=== PATIENT | male | born 1935 | race Caucasian/White ===

== ENCOUNTER 2016-12-17 09:06 | Inpatient (IN) | payer MEDICARE, OTHER ==
[~2016-12-17] VITALS: Ht 172.7 cm; Wt 85.8 kg
[~2016-12-17 09:06] MED LIST: AMLODIPINE BESYL5 MG PO; ASPIRIN E.C. 8181 MG PO; BROVANA15 MCG/2 M IH; CEPHALEXIN500 M1 PO; CIPRO 500MG TA500 MG PO; CORICIDIN COUGH1 TAB PO; CPAP; EPA FISH OIL1000 MG PO; FIBER THERAPY500 MG PO; FORADIL AERO0.012 MG IH; GLIPIZIDE10 MG PO; GLUCOPHAGE XR500 M1 PO; GLUCOPHAGE1000 MG PO; GLUCOPHAGE500 MG/TAB PO; GLUCOTROL10 MG PO; HYZAAR 25 MG-101 TAB PO; HYZAAR PO; IRON65 M1 PO; METFORMIN1000 MG PO; MUCUSRELF400T PO; NORMODYNE200 MG PO; NORVASC 5MG5 MG/TAB PO; PRAVACHOL 20MG20 MG PO; PRAVASTATIN20 MG PO; PULMICORT0.5 MG/2 M IH; RT SPIRIVA18 MCG IH; SPIRIVA HANDIH18 MCG IH; THEO-DUR 2200 MG/TAB PO; TUSSIN DM 10 M118 ML PO
[2016-12-17 09:26] VITALS: BP 1063/53; PULSE 70
[2016-12-17] MEDS ORDERED: GLUCOTROL 5M5 MG/TAB PO (09:35)
[2016-12-17] MEDS ORDERED: NORVASC 10MG10 MG PO (09:38)
[2016-12-17] MEDS ORDERED: THERA TABS1 TAB PO (09:40)
[2016-12-17 11:29] LABS: CALCIUM 9.8 mg/dL (8.4-10.2); CREATININE, serum 2.44 mg/dL (0.66-1.25); POTASSIUM 4.5 mmol/L (3.4-5.0)
[2016-12-17 13:09] VITALS: BP 160/55; PULSE 92; TEMP 98.1
[2016-12-17 17:11] VITALS: BP 170/63; PULSE 74; TEMP 98.5
[2016-12-17 22:23] VITALS: BP 155/51; PULSE 72; TEMP 98.3
[2016-12-18] VITALS (272 sets, daily range): BP systolic 124–169; BP diastolic 40–68; PULSE 7–84; TEMP 97–98.5; O2SAT 90–100
[2016-12-18 06:56] LABS: BASO % 0.2 % (0.0-2.0); EOS # 0.3 (0.0-0.7); GRAN # 6.2 (1.4-6.5); GRAN % 66.8 % (42.2-75.2); LYMPH # 1.8 (1.2-3.4); LYMPH % 19.5 % (20.0-51.0); MEAN CELL VOLUME 87 fl (80.0-100.0); MEAN CORPUSCULAR HGB CONC 32 g/dl (33.0-37.0); MEAN PLATELET VOLUME 9.6 fl (7.4-10.4); MONO # 0.9 (0.1-0.6); MONO % 10.2 % (1.7-9.3); PLATELET COUNT 257 K/mm3 (130-400); REDCELL DISTRIBUTION WIDTH-CV 13.2 % (11.5-14.5); WHITE BLOOD COUNT 9.2 K/mm3 (4.8-10.8)
[2016-12-18 07:01] LABS: HEMATOCRIT 30.5 % (42.0-52.0); HEMOGLOBIN 9.7 g/dl (13.5-18.0); MEAN CORPUSCULAR HEMOGLOBIN 28 pg (27.0-31.0)
[2016-12-18 07:06] LABS: CALCIUM 9.1 mg/dL (8.4-10.2); CREATININE, serum 2.36 mg/dL (0.66-1.25); POTASSIUM 4.7 mmol/L (3.4-5.0)
[2016-12-18 12:35] LABS: BASO # 0.1 (0.0-0.2); BASO % 0.3 % (0.0-2.0); EOS # 0.1 (0.0-0.7); EOS % 0.3 % (0-4.0); GRAN # 16.1 (1.4-6.5); GRAN % 86.5 % (42.2-75.2); LYMPH # 1.3 (1.2-3.4); LYMPH % 6.9 % (20.0-51.0); MEAN CELL VOLUME 88 fl (80.0-100.0); MEAN CORPUSCULAR HGB CONC 32 g/dl (33.0-37.0); MEAN PLATELET VOLUME 9.7 fl (7.4-10.4); MONO % 5.4 % (1.7-9.3); PLATELET COUNT 263 K/mm3 (130-400); RED BLOOD COUNT 3.47 M/mm3 (4.20-5.60); REDCELL DISTRIBUTION WIDTH-CV 13.2 % (11.5-14.5); WHITE BLOOD COUNT 18.6 K/mm3 (4.8-10.8)
[2016-12-18 12:36] LABS: HEMATOCRIT 30.6 % (42.0-52.0); HEMOGLOBIN 9.8 g/dl (13.5-18.0); MEAN CORPUSCULAR HEMOGLOBIN 28 pg (27.0-31.0)
[2016-12-18 12:37] LABS: CALCIUM 8.3 mg/dL (8.4-10.2); CREATININE, serum 2.56 mg/dL (0.66-1.25); MAGNESIUM 1.9 mg/dL (1.6-2.3); PHOSPHOROUS 4.7 mg/dL (2.5-4.5); POTASSIUM 5.3 mmol/L (3.4-5.0)
[2016-12-18 16:28] LABS: MEAN CELL VOLUME 88 fl (80.0-100.0); MEAN CORPUSCULAR HGB CONC 32 g/dl (33.0-37.0); MEAN PLATELET VOLUME 9.7 fl (7.4-10.4); PLATELET COUNT 263 K/mm3 (130-400); RED BLOOD COUNT 3.45 M/mm3 (4.20-5.60); REDCELL DISTRIBUTION WIDTH-CV 13.2 % (11.5-14.5)
[2016-12-18 16:34] LABS: HEMATOCRIT 30.5 % (42.0-52.0); HEMOGLOBIN 9.7 g/dl (13.5-18.0); MEAN CORPUSCULAR HEMOGLOBIN 28 pg (27.0-31.0)
[2016-12-18 18:08] LABS: AMMONIA < 9 umol/L (11-35)
[2016-12-18 18:09] LABS: ALANINE AMINOTRANSFERASE 38 U/L (21-72); ALBUMIN 3.7 gm/dL (3.5-5.0); ALKALINE PHOSPHATASE 88 U/L (50-136); BILIRUBIN,DIRECT 0.5 mg/dL (0.0-0.4); BILIRUBIN,TOTAL 0.7 mg/dL (0.0-1.0); TOTAL PROTEIN 6.6 gm/dL (6.4-8.2)
[2016-12-19] VITALS (230 sets, daily range): BP systolic 130–166; BP diastolic 38–60; PULSE 64–649; TEMP 97.3–98.9; O2SAT 82–100
[2016-12-19 05:54] LABS: MEAN CELL VOLUME 88 fl (80.0-100.0); MEAN CORPUSCULAR HGB CONC 32 g/dl (33.0-37.0); MEAN PLATELET VOLUME 9.7 fl (7.4-10.4); PLATELET COUNT 240 K/mm3 (130-400); RED BLOOD COUNT 3.05 M/mm3 (4.20-5.60); REDCELL DISTRIBUTION WIDTH-CV 13.2 % (11.5-14.5); WHITE BLOOD COUNT 17.6 K/mm3 (4.8-10.8)
[2016-12-19 05:57] LABS: HEMATOCRIT 26.7 % (42.0-52.0); HEMOGLOBIN 8.5 g/dl (13.5-18.0); MEAN CORPUSCULAR HEMOGLOBIN 28 pg (27.0-31.0)
[2016-12-19 06:03] LABS: CREATININE, serum 2.91 mg/dL (0.66-1.25); PHOSPHOROUS 4.7 mg/dL (2.5-4.5); POTASSIUM 5.5 mmol/L (3.4-5.0)
[2016-12-19 13:20] LABS: CALCIUM 7.9 mg/dL (8.4-10.2); CREATININE, serum 2.83 mg/dL (0.66-1.25); POTASSIUM 5.4 mmol/L (3.4-5.0)
[2016-12-20] VITALS (10 sets, daily range): BP systolic 151–179; BP diastolic 52–76; PULSE 45–88; TEMP 97.1–98.6
[2016-12-20 07:52] LABS: BASO % 0.1 % (0.0-2.0); GRAN # 11.5 (1.4-6.5); GRAN % 81.4 % (42.2-75.2); LYMPH % 7.1 % (20.0-51.0); MEAN CELL VOLUME 88 fl (80.0-100.0); MEAN CORPUSCULAR HGB CONC 32 g/dl (33.0-37.0); MEAN PLATELET VOLUME 9.6 fl (7.4-10.4); MONO # 1.5 (0.1-0.6); MONO % 10.5 % (1.7-9.3); PLATELET COUNT 215 K/mm3 (130-400); RED BLOOD COUNT 2.63 M/mm3 (4.20-5.60); REDCELL DISTRIBUTION WIDTH-CV 13.7 % (11.5-14.5); WHITE BLOOD COUNT 14.1 K/mm3 (4.8-10.8)
[2016-12-20 08:03] LABS: CALCIUM 7.7 mg/dL (8.4-10.2); CREATININE, serum 2.68 mg/dL (0.66-1.25)
[2016-12-20 08:07] LABS: HEMATOCRIT 23.1 % (42.0-52.0); HEMOGLOBIN 7.4 g/dl (13.5-18.0); MEAN CORPUSCULAR HEMOGLOBIN 28 pg (27.0-31.0)
[2016-12-21 01:44] VITALS: BP 169/53; PULSE 85; TEMP 98.6
[2016-12-21 05:48] VITALS: BP 158/57; PULSE 94; TEMP 98.4
[2016-12-21 09:21] LABS: BASO % 0.2 % (0.0-2.0); EOS % 0.3 % (0-4.0); GRAN # 8.3 (1.4-6.5); GRAN % 73.2 % (42.2-75.2); LYMPH # 1.5 (1.2-3.4); LYMPH % 13.1 % (20.0-51.0); MEAN CELL VOLUME 88 fl (80.0-100.0); MEAN CORPUSCULAR HGB CONC 32 g/dl (33.0-37.0); MEAN PLATELET VOLUME 9.7 fl (7.4-10.4); MONO # 1.4 (0.1-0.6); MONO % 12.3 % (1.7-9.3); PLATELET COUNT 219 K/mm3 (130-400); RED BLOOD COUNT 3.12 M/mm3 (4.20-5.60); REDCELL DISTRIBUTION WIDTH-CV 14.1 % (11.5-14.5); WHITE BLOOD COUNT 11.3 K/mm3 (4.8-10.8)
[2016-12-21 09:23] LABS: HEMATOCRIT 27.5 % (42.0-52.0); HEMOGLOBIN 8.8 g/dl (13.5-18.0); MEAN CORPUSCULAR HEMOGLOBIN 28 pg (27.0-31.0)
[2016-12-21 09:29] LABS: CREATININE, serum 2.32 mg/dL (0.66-1.25)
[2016-12-21 10:34] VITALS: BP 150/44; PULSE 78; TEMP 98.5
[2016-12-21 14:00] VITALS: BP 165/48; PULSE 80; TEMP 98.8
[2016-12-21 18:26] VITALS: BP 162/49; PULSE 82; TEMP 99.5
[2016-12-21 22:02] VITALS: BP 192/58; PULSE 92; TEMP 98.8
[2016-12-22] VITALS (456 sets, daily range): BP systolic 143–200; BP diastolic 55–77; PULSE 66–93; TEMP 97.1–99.4; O2SAT 89–100
[2016-12-22 06:56] LABS: ARTERIAL BLD GAS O2 SATURATION 97.1 % (92-100); ARTERIAL BLD GAS TCO2 CT 33.5; ARTERIAL BLOOD GAS BASE EXCESS 6.3 (-2-2); ARTERIAL BLOOD GAS HCO3 31.9 meq/L (22-26); ARTERIAL BLOOD GAS PHT 7.41 C (7.35-7.45); ARTERIAL BLOOD GAS PO2 104.7 mmHg (80-100); ARTERIAL BLOOD GAS PO2T 104.7 (80-100); ARTERIAL BLOOD GAS pH 7.41 (7.35-7.45)
[2016-12-22 06:57] LABS: ATS? YES
[2016-12-22 07:25] LABS: BASO % 0.2 % (0.0-2.0); EOS # 0.1 (0.0-0.7); EOS % 0.5 % (0-4.0); GRAN # 8.7 (1.4-6.5); GRAN % 78.7 % (42.2-75.2); LYMPH # 0.9 (1.2-3.4); LYMPH % 7.9 % (20.0-51.0); MEAN CELL VOLUME 88 fl (80.0-100.0); MEAN CORPUSCULAR HGB CONC 32 g/dl (33.0-37.0); MEAN PLATELET VOLUME 9.8 fl (7.4-10.4); MONO # 1.3 (0.1-0.6); MONO % 11.9 % (1.7-9.3); PLATELET COUNT 236 K/mm3 (130-400); RED BLOOD COUNT 3.38 M/mm3 (4.20-5.60); WHITE BLOOD COUNT 11.1 K/mm3 (4.8-10.8)
[2016-12-22 07:26] LABS: HEMATOCRIT 29.8 % (42.0-52.0); HEMOGLOBIN 9.5 g/dl (13.5-18.0); MEAN CORPUSCULAR HEMOGLOBIN 28 pg (27.0-31.0)
[2016-12-22 07:52] LABS: CALCIUM 8.8 mg/dL (8.4-10.2); CREATININE, serum 2.18 mg/dL (0.66-1.25); POTASSIUM 3.5 mmol/L (3.4-5.0)
[2016-12-22 10:11] LABS: MEAN CELL VOLUME 89 fl (80.0-100.0); MEAN CORPUSCULAR HGB CONC 31 g/dl (33.0-37.0); MEAN PLATELET VOLUME 9.7 fl (7.4-10.4); PLATELET COUNT 228 K/mm3 (130-400); REDCELL DISTRIBUTION WIDTH-CV 13.7 % (11.5-14.5); WHITE BLOOD COUNT 11.4 K/mm3 (4.8-10.8)
[2016-12-22 10:15] LABS: HEMOGLOBIN 9.7 g/dl (13.5-18.0); MEAN CORPUSCULAR HEMOGLOBIN 28 pg (27.0-31.0)
[2016-12-22 10:20] LABS: CREATININE, serum 2.17 mg/dL (0.66-1.25); POTASSIUM 3.9 mmol/L (3.4-5.0)
[2016-12-22 13:52] LABS: ALLEN TEST NO; ARTERIAL BLD GAS O2 SATURATION 97.1 % (92-100); ARTERIAL BLD GAS TCO2 CT 28.9; ARTERIAL BLOOD GAS BASE EXCESS 1.9 (-2-2); ARTERIAL BLOOD GAS HCO3 27.4 meq/L (22-26); ARTERIAL BLOOD GAS PHT 7.38 C (7.35-7.45); ARTERIAL BLOOD GAS PO2 99.8 mmHg (80-100); ARTERIAL BLOOD GAS PO2T 99.8 (80-100); ARTERIAL BLOOD GAS pH 7.38 (7.35-7.45); ATS? YES; OXYHEMOGLOBIN 96.1 %
[2016-12-23] VITALS (844 sets, daily range): BP systolic 151–187; BP diastolic 56–63; PULSE 62–82; TEMP 97–98.5; O2SAT 77–100
[2016-12-23 04:44] LABS: ARTERIAL BLD GAS O2 SATURATION 96.8 % (92-100); ARTERIAL BLD GAS TCO2 CT 25.7; ARTERIAL BLOOD GAS BASE EXCESS -2.2 (-2-2); ARTERIAL BLOOD GAS HCO3 24.2 meq/L (22-26); ARTERIAL BLOOD GAS PHT 7.31 C (7.35-7.45); ARTERIAL BLOOD GAS PO2 105.4 mmHg (80-100); ARTERIAL BLOOD GAS PO2T 105.4 (80-100); ARTERIAL BLOOD GAS pH 7.31 (7.35-7.45); OXYHEMOGLOBIN 95.7 %
[2016-12-23 04:45] LABS: ALLEN TEST YES; ALLENS TEST RESULT PASS; ATS? YES
[2016-12-23 06:04] LABS: CALCIUM 8.5 mg/dL (8.4-10.2); CREATININE, serum 2.33 mg/dL (0.66-1.25); POTASSIUM 4.1 mmol/L (3.4-5.0)
[2016-12-24] VITALS (545 sets, daily range): BP systolic 150–180; BP diastolic 42–100; PULSE 68–75; TEMP 97.6–98.3; O2SAT 84–100
[2016-12-24 06:34] LABS: BASO % 0.1 % (0.0-2.0); EOS # 0.6 (0.0-0.7); EOS % 5.9 % (0-4.0); GRAN # 6.5 (1.4-6.5); GRAN % 69.9 % (42.2-75.2); LYMPH # 1.2 (1.2-3.4); LYMPH % 12.3 % (20.0-51.0); MEAN CELL VOLUME 88 fl (80.0-100.0); MEAN CORPUSCULAR HGB CONC 32 g/dl (33.0-37.0); MEAN PLATELET VOLUME 9.8 fl (7.4-10.4); MONO # 1.1 (0.1-0.6); MONO % 11.4 % (1.7-9.3); PLATELET COUNT 222 K/mm3 (130-400); RED BLOOD COUNT 2.99 M/mm3 (4.20-5.60); REDCELL DISTRIBUTION WIDTH-CV 13.9 % (11.5-14.5); WHITE BLOOD COUNT 9.4 K/mm3 (4.8-10.8)
[2016-12-24 06:45] LABS: HEMATOCRIT 26.4 % (42.0-52.0); HEMOGLOBIN 8.4 g/dl (13.5-18.0); MEAN CORPUSCULAR HEMOGLOBIN 28 pg (27.0-31.0)
[2016-12-24 06:57] LABS: CALCIUM 8.1 mg/dL (8.4-10.2); CREATININE, serum 2.23 mg/dL (0.66-1.25); POTASSIUM 3.6 mmol/L (3.4-5.0)
[2016-12-25 04:57] VITALS: BP 174/40; PULSE 65
[2016-12-25 08:18] LABS: BASO % 0.1 % (0.0-2.0); EOS # 0.5 (0.0-0.7); EOS % 6.1 % (0-4.0); GRAN # 5.3 (1.4-6.5); GRAN % 66.9 % (42.2-75.2); LYMPH # 1.1 (1.2-3.4); LYMPH % 14.1 % (20.0-51.0); MEAN CELL VOLUME 87 fl (80.0-100.0); MEAN CORPUSCULAR HGB CONC 32 g/dl (33.0-37.0); MONO % 12.3 % (1.7-9.3); PLATELET COUNT 213 K/mm3 (130-400); RED BLOOD COUNT 2.93 M/mm3 (4.20-5.60); REDCELL DISTRIBUTION WIDTH-CV 13.7 % (11.5-14.5); WHITE BLOOD COUNT 7.9 K/mm3 (4.8-10.8)
[2016-12-25 08:40] LABS: CALCIUM 8.5 mg/dL (8.4-10.2); CREATININE, serum 2.55 mg/dL (0.66-1.25); POTASSIUM 3.7 mmol/L (3.4-5.0)
[2016-12-25 08:45] LABS: HEMATOCRIT 25.6 % (42.0-52.0); HEMOGLOBIN 8.3 g/dl (13.5-18.0); MEAN CORPUSCULAR HEMOGLOBIN 28 pg (27.0-31.0)
[2016-12-25 10:20] VITALS: BP 155/34; PULSE 76; TEMP 97.8
[2016-12-25 13:13] LABS: ARTERIAL BLD GAS O2 SATURATION 91.9 % (92-100); ARTERIAL BLOOD GAS BASE EXCESS -1.5 (-2-2); ARTERIAL BLOOD GAS HCO3 22.9 meq/L (22-26); ARTERIAL BLOOD GAS PHT 7.41 C (7.35-7.45); ARTERIAL BLOOD GAS PO2 64.7 mmHg (80-100); ARTERIAL BLOOD GAS PO2T 64.7 (80-100); ARTERIAL BLOOD GAS pH 7.41 (7.35-7.45); OXYHEMOGLOBIN 90.9 %
[2016-12-25 13:15] LABS: ALLEN TEST YES; ALLENS TEST RESULT PASS; ATS? YES
[2016-12-25 13:57] VITALS: BP 155/38; PULSE 62; TEMP 98.1
[2016-12-25 18:12] VITALS: BP 160/71; PULSE 72; TEMP 97.2
[2016-12-25 20:42] VITALS: BP 179/41; PULSE 71; TEMP 98.7
[2016-12-26 02:09] VITALS: BP 184/45; PULSE 74; TEMP 96.8
[2016-12-26 06:26] VITALS: BP 180/41; PULSE 77; TEMP 99
[2016-12-26 07:25] LABS: BASO % 0.1 % (0.0-2.0); EOS # 0.5 (0.0-0.7); EOS % 6.3 % (0-4.0); GRAN # 5.1 (1.4-6.5); GRAN % 61.4 % (42.2-75.2); LYMPH # 1.5 (1.2-3.4); LYMPH % 17.5 % (20.0-51.0); MEAN CELL VOLUME 88 fl (80.0-100.0); MEAN CORPUSCULAR HGB CONC 31 g/dl (33.0-37.0); MONO # 1.2 (0.1-0.6); MONO % 13.9 % (1.7-9.3); PLATELET COUNT 227 K/mm3 (130-400); RED BLOOD COUNT 2.94 M/mm3 (4.20-5.60); REDCELL DISTRIBUTION WIDTH-CV 13.9 % (11.5-14.5); WHITE BLOOD COUNT 8.4 K/mm3 (4.8-10.8)
[2016-12-26 07:28] LABS: CALCIUM 8.1 mg/dL (8.4-10.2); CREATININE, serum 2.29 mg/dL (0.66-1.25); HEMATOCRIT 25.9 % (42.0-52.0); HEMOGLOBIN 8.1 g/dl (13.5-18.0); MEAN CORPUSCULAR HEMOGLOBIN 28 pg (27.0-31.0); POTASSIUM 3.9 mmol/L (3.4-5.0)
[2016-12-26 10:00] VITALS: BP 150/45; PULSE 66; TEMP 97.7
[2016-12-26 13:07] VITALS: BP 167/56; PULSE 64; TEMP 97.7
[2016-12-26 18:27] VITALS: BP 180/43; PULSE 68
[2016-12-26 21:53] VITALS: BP 166/37; PULSE 73; TEMP 98.7
[2016-12-27 06:22] VITALS: BP 193/44; PULSE 66; TEMP 98.4
[2016-12-27 09:40] VITALS: BP 187/44; PULSE 71; TEMP 98.7
[2016-12-27 15:17] VITALS: BP 154/42; PULSE 69; TEMP 98
[2016-12-27 17:39] VITALS: BP 168/46; PULSE 71; TEMP 98.2
[2016-12-27 21:24] VITALS: BP 183/52; PULSE 74; TEMP 98.9
[2016-12-28 06:30] VITALS: BP 172/42; PULSE 69; TEMP 98.8
[2016-12-28 10:15] VITALS: BP 149/48; PULSE 73; TEMP 98.3
[2016-12-28 13:53] LABS: CALCIUM 8.3 mg/dL (8.4-10.2); CREATININE, serum 2.71 mg/dL (0.66-1.25); POTASSIUM 4.7 mmol/L (3.4-5.0)
[2016-12-28 13:57] VITALS: BP 150/44; PULSE 72; TEMP 98
[2016-12-28 17:31] VITALS: BP 174/48; PULSE 66; TEMP 98.3
[2016-12-28 18:20] VITALS: BP 130/63
[2016-12-28 20:33] VITALS: BP 169/49; PULSE 73; TEMP 98.2
[2016-12-29 05:33] VITALS: BP 171/65; PULSE 68; TEMP 99.1
[2016-12-29 07:22] LABS: CALCIUM 8.7 mg/dL (8.4-10.2); CREATININE, serum 2.94 mg/dL (0.66-1.25); POTASSIUM 4.3 mmol/L (3.4-5.0)
[2016-12-29 09:49] VITALS: BP 179/40; PULSE 74; TEMP 98.2
[2016-12-29 13:22] VITALS: BP 155/45; PULSE 66; TEMP 98.3
[2016-12-29 14:28] VITALS: BP 155/45; PULSE 66; TEMP 98.3
== END 2016-12-29 15:00 | disposition swing bed (61) | DRG 653 ==
LOC: ICU 09:06 → SURG 09:06 → ICU 12-18 13:31 → SURG 12-19 13:45 → ICU 12-22 09:25 → IMCU 12-22 17:51 → SURG 12-24 11:24
PROVIDERS: Family Medicine; Internal Medicine; Internal Medicine Nephrology; Internal Medicine Pulmonary Disease; Physician Assistant; Urology
PROC: 0TTB0ZZ Resection of Bladder, Open Approach (ICD-10-PCS; 2016-12-18)
PROC: 07BC0ZX Excision of Pelvis Lymphatic, Open Approach, Diagnostic (ICD-10-PCS; 2016-12-18)
PROC: 0T180ZC Bypass Bilateral Ureters to Ileocutaneous, Open Approach (ICD-10-PCS; 2016-12-18)
PROC: 0VT00ZZ Resection of Prostate, Open Approach (ICD-10-PCS; principal; 2016-12-18 07:30)
DX: C67.9 Malignant neoplasm of bladder, unspecified (principal); J96.02 Acute respiratory failure with hypercapnia; N18.4 Chronic kidney disease, stage 4 (severe); F05 Delirium due to known physiological condition; D62 Acute posthemorrhagic anemia; N17.9 Acute kidney failure, unspecified; J98.11 Atelectasis; E87.2 Acidosis; I12.9 Hypertensive chronic kidney disease with stage 1 through stage 4 chronic kidney disease, or unspecified chronic kidney disease; J44.9 Chronic obstructive pulmonary disease, unspecified; E87.5 Hyperkalemia; E11.22 Type 2 diabetes mellitus with diabetic chronic kidney disease; I25.10 Atherosclerotic heart disease of native coronary artery without angina pectoris; Z95.5 Presence of coronary angioplasty implant and graft; Z87.891 Personal history of nicotine dependence
CPT/HCPCS: 90791-AI; 99222; 99232-AI; 99233-AI; C9113; J0360; J0690; J0694; J1100; J1644; J1650; J1815; J1940; J2250; J2405; J2704; J2765; J2795; J3010; J7030; J7050; J7120; P9016

== ENCOUNTER → 2018-01-12 | Outpatient (CLI) | payer MEDICARE, OTHER ==
[~2018-01-12] VITALS: Ht 172.7 cm; Wt 73.2 kg
[2018-01-12] VITALS (10 sets, daily range): BP systolic 144–177; BP diastolic 60–72; PULSE 78–84
[~2018-01-12] MED LIST changes: +COZAAR 50MG50 MG/TAB PO; +GLUCOTROL 5M5 MG/TAB PO; +HYTRIN 1MG C1 MG/CAP PO; +LEVEMIR100 U/ML SQ; +NORCO 325 MG-51 TAB PO; +NORVASC 10MG10 MG PO; +SODIUM BICARBO650 MG PO; +THERA TABS1 TAB PO; +XANAX 0.5MG0.5 MG PO
== END ==
LOC: COL.RAD 12:48
DX: C67.9 Malignant neoplasm of bladder, unspecified (principal); C79.51 Secondary malignant neoplasm of bone; N18.9 Chronic kidney disease, unspecified; E11.9 Type 2 diabetes mellitus without complications; I73.9 Peripheral vascular disease, unspecified; I25.10 Atherosclerotic heart disease of native coronary artery without angina pectoris; Z87.891 Personal history of nicotine dependence; Z90.6 Acquired absence of other parts of urinary tract; Z90.79 Acquired absence of other genital organ(s)

== ENCOUNTER 2019-07-12 16:21 | Inpatient (IN) | payer MEDICARE, OTHER ==
[~2019-07-12] VITALS: Ht 175.3 cm; Wt 82.1 kg
[~2019-07-12 16:21] MED LIST changes: -COZAAR 50MG50 MG/TAB PO; +COZAAR100 MG PO; +NORMODYNE300 MG PO; -NORVASC 10MG10 MG PO
--- NOTE | 2019-07-12 17:18 | NUR ---
PT ADMITTED TO FLOOR AT THIS TIME. THIS NURSE CALLED DR. HENDRICKSON AND RECIEVED ORDERS FOR PT.
[2019-07-12 17:44] LABS: COLLECTION METHOD CLEAN CATCH
[2019-07-12 17:45] VITALS: BP 162/47; PULSE 64; TEMP 97.5
[2019-07-12] MEDS ORDERED: DEMADEX 20MG20 M1 PO (17:55)
[2019-07-12] MEDS ORDERED: CALCIUM 600 PLU1 TAB PO (17:59)
[2019-07-12 18:05] LABS: MUCOUS Present /lpf; PH 6 (5-8); SQUAMOUS EPITHELIAL None Seen /hpf; URINE APPEARANCE Hazy; URINE BACTERIA Rare /hpf; URINE BILIRUBIN Negative (NEGATIVE); URINE BLOOD Negative (NEGATIVE); URINE COLOR Yellow; URINE GLUCOSE Negative (NEGATIVE); URINE KETONE Negative (NEGATIVE); URINE LEUKOCYTE ESTERASE Negative (NEGATIVE); URINE NITRATE Positive (NEGATIVE); URINE PROTEIN(semi-quant) 2+ (NEGATIVE); URINE RBC 0-2 /hpf; URINE UROBILINOGEN Negative (NEGATIVE)
[2019-07-12 18:08] LABS: ALBUMIN 4.4 gm/dL (3.5-5.0); BASO % 0.3 % (0.0-2.0); BILIRUBIN,TOTAL 0.7 mg/dL (0.0-1.0); CALCIUM 9.9 mg/dL (8.4-10.2); GRAN # 5.8 (1.4-6.5); GRAN % 76.6 % (42.2-75.2); HEMOGLOBIN 11.7 g/dl (13.5-18.0); LYMPH # 1.1 (1.2-3.4); LYMPH % 14.8 % (20.0-51.0); MEAN CELL VOLUME 95 fl (80.0-100.0); MEAN CORPUSCULAR HEMOGLOBIN 32 pg (27.0-31.0); MEAN CORPUSCULAR HGB CONC 33 g/dl (33.0-37.0); MEAN PLATELET VOLUME 9.5 fl (7.4-10.4); MONO # 0.6 (0.1-0.6); MONO % 7.9 % (1.7-9.3); PLATELET COUNT 210 K/mm3 (130-400); POTASSIUM 4.3 mmol/L (3.4-5.0); RED BLOOD COUNT 3.72 M/mm3 (4.20-5.60); REDCELL DISTRIBUTION WIDTH-CV 12.5 % (11.5-14.5); TOTAL PROTEIN 7.5 gm/dL (6.4-8.2)
[2019-07-12 18:10] LABS: URINE PROTEIN:CREAT RATIO 1.81 (0.00-0.14)
[2019-07-12 18:15] LABS: HEMATOCRIT 35.2 % (42.0-52.0)
[2019-07-12 18:20] LABS: CREATININE, serum 4.24 (0.66-1.25)
--- NOTE | 2019-07-12 19:45 | NUR ---
PT ADMISSION PAPERWORK AND MEDICATIONS ENTERED INTO COMPUTER. PT FAMILY LEFT A NIGHT TIME UROSTOMY BAG AND ADAPTER, REVIEWED THIS WITH SPORTS TEAM MANAGER NURSE JESSICA AND RACHEL. DENTURE CUP PROVIDED FOR PT WELL. O2 IN PLACE AND AT 3L PER BASELINE RATE, NOTIFIED RT OF PT BEING ON O2. LABS HAVE BEEN OBTAINED. NO C/O PAIN AT THIS TIME.
[2019-07-12 20:06] VITALS: BP 153/115; PULSE 73; TEMP 98.2
--- NOTE | 2019-07-12 23:24 | NUR ---
Report received from PAMELA Stone. Patient resting in bed at this time. Orders from Dr. Stout received. Blood pressure was elevated. Blood pressure medications given. Other vitals within normal limits. IV started in right forearm. NS started 250 bolus over one hour. Assessment completed. Patient denies any pain or further needs at this time. Call light within reach.
[2019-07-13] VITALS (7 sets, daily range): BP systolic 123–190; BP diastolic 41–54; PULSE 56–70; TEMP 98–98.7
--- NOTE | 2019-07-13 06:06 | NUR ---
Patient had uneventful night. IV started and NS running at 50ml/hr. Nephrostomy bag drained. Resting in bed. Call light within reach.
--- NOTE | 2019-07-13 07:02 | NUR ---
Report given to PAMELA Aguilar.
--- NOTE | 2019-07-13 09:11 | NUR ---
Pt assessment complete. Pt is sleeping in bed upon entry, he arouses to voice. He is A/O x3, very hard of hearing. Pt's breathing is even and unlabored on 3L O2 via NC, pt reports chronic SOB. Pt denies any pain at this time. Breakfast ordered for patient. Urostomy bag emptied. IVF infusing into RFA without complications. No further needs at this time. Call light within reach. Will continue to monitor.
[2019-07-13 09:54] LABS: ALBUMIN 3.7 gm/dL (3.5-5.0); CALCIUM 8.9 mg/dL (8.4-10.2); CREATININE, serum 3.64 (0.66-1.25); PHOSPHOROUS 4.3 mg/dL (2.5-4.5); POTASSIUM 4.3 mmol/L (3.4-5.0); URIC ACID 10.7 mg/dL (3.5-8.5)
[2019-07-13 10:47] LABS: CREATININE, serum 3.64 (0.66-1.25); FRACTIONAL EXCRETION OF NA+ 1.7 %
--- NOTE | 2019-07-13 14:42 | NUR ---
LAUREN met with the patient to discuss discharge plan. The patient lives in [place] with his , Analy. He reports independence with ADLs and does not have any assistive devices. He states that he does have home oxygen from a [employer] company in [place]. The patient's PCP is Dr. Victor Manuel Miranda and he receives his medications from [facility]. He reports some difficulties affording his meds, but states that he has always been able to manage to afford and pick them up. The patient's Living Will and General DPOA are in EMR. He states that he does have a DPOA-HC completed and that he believes his DPOA-HC is his daughter, Komal Torres (ph#[phone]). He states his PCP's office should have a copy of it. LAUREN contacted the patient's PCP's office and requested a copy. The patient plans to return home with his upon discharge. No additional needs at this time.
--- NOTE | 2019-07-13 19:06 | NUR ---
Pt had uneventful day, slept through most of it. He denied any pain. Drainage bag attached to urostomy, clear yellow urine visualized. IVF infusing without complications. POC discussed with patient and his daughter. Deny needs at this time. Call light within reach.
--- NOTE | 2019-07-13 19:40 | NUR ---
CALLED DR. MEDINA IN REFERENCE TO BP BEING 183/49 IN RIGHT ARM AND LEFT ARM BP 207/54. RECEIVED ORDERS TO DC IV FLUIDS AND TO GIVE HYDRALIZINE 10MG PO Q6H PO FOR SBP GREATER OR EQAUL TO 165.
--- NOTE | 2019-07-13 19:59 | NUR ---
CALLED DR. MEDINA BACK TO INFORM HIM THAT WE DO NOT HAVE 10MG OF PO HYDRALAZINE. DR. MEDINA GAVE ORDERS TO CHANGE DOSE TO 25 MG PO OF HYDRALAZINE.
--- NOTE | 2019-07-13 20:19 | NUR ---
PT A/O X4, IN BED WITH HOB AT 15 DEGREE ANGLE, DENIES PAIN OR DISCOMFORT AND IS PLEASANT. UROSTOMY BAG DRAINING WITH CLEAR YELLOW URINE. NO NEEDS AT THIS TIME, CALL LIGHT WITHIN REACH.
[2019-07-14 00:23] VITALS: BP 123/59; PULSE 57; TEMP 98.9
--- NOTE | 2019-07-14 00:55 | NUR ---
PT SLEEPING/RESTING IN BED WITH HOB AT 15 DEGREE ANGLE. PT EASILY AWAKENS AND GOES BACK TO SLEEP. PT ADVISES THAT HE HAS BEEN AWAKE OFF AND ON, SO FAR THIS NIGHT. DENIES PAIN OR DISCOMFORT AND HAS NO NEEDS AT THIS TIME. UROSTOMY DRAINING WELL WITH CLEAR YELLOW URINE, EMPTIED 600 ML FROM [place] BAG. CALL LIGHT WITHIN REACH.
[2019-07-14 04:47] VITALS: BP 130/42; PULSE 63; TEMP 98.4
[2019-07-14 06:28] LABS: ALBUMIN 3.4 gm/dL (3.5-5.0); CALCIUM 8.9 mg/dL (8.4-10.2); CREATININE, serum 3.5 (0.66-1.25); PHOSPHOROUS 4.2 mg/dL (2.5-4.5); POTASSIUM 3.9 mmol/L (3.4-5.0)
--- NOTE | 2019-07-14 07:03 | NUR ---
UNEVENTFUL NIGHT FOR PT. PT RESTING/SLEEPING IN BED WITH HOB ELEVATED TO 30 DEGREE ANGLE. PT DENIES PAIN OR DISCOMFORT AND BP HAS BEEN WNL AFTER GETTING THEY HYDRALAZINE. [place] BAG HAS CLEAR YELLOW URINE DRAINING IN BAG. CALL LIGHT WITHIN REACH.
[2019-07-14 07:32] VITALS: BP 183/50; PULSE 65; TEMP 98.3
[2019-07-14 08:33] LABS: BASO % 0.2 % (0.0-2.0); GRAN # 4.6 (1.4-6.5); GRAN % 70.8 % (42.2-75.2); HEMOGLOBIN 10.1 g/dl (13.5-18.0); LYMPH # 1.2 (1.2-3.4); LYMPH % 18.9 % (20.0-51.0); MEAN CELL VOLUME 97 fl (80.0-100.0); MEAN CORPUSCULAR HEMOGLOBIN 32 pg (27.0-31.0); MEAN CORPUSCULAR HGB CONC 33 g/dl (33.0-37.0); MEAN PLATELET VOLUME 10.1 fl (7.4-10.4); MONO # 0.6 (0.1-0.6); MONO % 9.9 % (1.7-9.3); PLATELET COUNT 182 K/mm3 (130-400); RED BLOOD COUNT 3.21 M/mm3 (4.20-5.60); REDCELL DISTRIBUTION WIDTH-CV 12.4 % (11.5-14.5)
--- NOTE | 2019-07-14 09:25 | NUR ---
Pt assessment complete. Pt is sitting up on the side of the bed upon entry, he is A/O x3. His breathing is even and unlabored on 3L O2 via NC. Pt denies increased SOB. Pt has no pain this am. Urostomy draining clear yellow urine. Pt denies N/V. POC discussed with patient who verbalizes understanding. No needs at this time. Call light within reach.
[2019-07-14 09:53] VITALS: BP 171/45
[2019-07-14] MEDS ORDERED: ZYLOPRIM 300MG300 MG PO (10:38)
[2019-07-14 11:31] VITALS: BP 120/42; PULSE 62; TEMP 97.9
--- NOTE | 2019-07-14 13:08 | NUR ---
Discharge paperwork and instructions reviewed with patient and his daughter. All questions answered at this time. IV dc'd from RFA, catheter tip intact. Pt wheeled out of facility at this time.
== END 2019-07-14 13:11 | disposition home or self-care (01) | DRG 683 ==
LOC: MEDICAL 16:21
PROVIDERS: ADMIT Internal Medicine Nephrology
DX: N17.9 Acute kidney failure, unspecified (principal); C79.51 Secondary malignant neoplasm of bone; E11.22 Type 2 diabetes mellitus with diabetic chronic kidney disease; N18.4 Chronic kidney disease, stage 4 (severe); I12.9 Hypertensive chronic kidney disease with stage 1 through stage 4 chronic kidney disease, or unspecified chronic kidney disease; C67.9 Malignant neoplasm of bladder, unspecified; J44.9 Chronic obstructive pulmonary disease, unspecified; I25.10 Atherosclerotic heart disease of native coronary artery without angina pectoris; E11.51 Type 2 diabetes mellitus with diabetic peripheral angiopathy without gangrene; N10 Acute pyelonephritis; Z95.5 Presence of coronary angioplasty implant and graft; Z98.42 Cataract extraction status, left eye; Z90.6 Acquired absence of other parts of urinary tract; Z90.79 Acquired absence of other genital organ(s); Z79.4 Long term (current) use of insulin; Z87.891 Personal history of nicotine dependence
CPT/HCPCS: J1815; J7030; J7050

== ENCOUNTER 2019-11-12 15:03 | Inpatient (IN) | payer MEDICARE, OTHER ==
[~2019-11-12] VITALS: Ht 172.7 cm; Wt 79.3 kg
[~2019-11-12 15:03] MED LIST changes: +CALCIUM 600 PLU1 TAB PO; +DEMADEX 20MG20 M1 PO; +ZYLOPRIM 300MG300 MG PO
[2019-11-12 15:29] VITALS: BP 141/55; PULSE 76; TEMP 97.9
[2019-11-12 17:31] LABS: BASO % 0.3 % (0.0-2.0); GRAN # 4.9 (1.4-6.5); GRAN % 75.2 % (42.2-75.2); LYMPH # 0.9 (1.2-3.4); LYMPH % 14.2 % (20.0-51.0); MEAN CELL VOLUME 99 fl (80.0-100.0); MEAN CORPUSCULAR HGB CONC 31 g/dl (33.0-37.0); MONO # 0.7 (0.1-0.6); PLATELET COUNT 217 K/mm3 (130-400); RED BLOOD COUNT 2.78 M/mm3 (4.20-5.60)
[2019-11-12 17:32] LABS: HEMATOCRIT 27.5 % (42.0-52.0); HEMOGLOBIN 8.5 g/dl (13.5-18.0); MEAN CORPUSCULAR HEMOGLOBIN 31 pg (27.0-31.0)
[2019-11-12 17:42] LABS: ALBUMIN 3.8 gm/dL (3.5-5.0); BILIRUBIN,TOTAL 0.5 mg/dL (0.0-1.0); CALCIUM 9.7 mg/dL (8.4-10.2); CREATININE, serum 4.33 (0.66-1.25); POTASSIUM 5.2 mmol/L (3.4-5.0); TOTAL PROTEIN 6.7 gm/dL (6.4-8.2)
[2019-11-12] MEDS ORDERED: NORVASC 10MG10 MG PO (18:03)
[2019-11-12] MEDS ORDERED: BASAGLAR K100 UNIT/1 SQ (18:08)
[2019-11-12] MEDS ORDERED: HUMALOG PEN100 U/ML SQ (18:10)
--- NOTE | 2019-11-12 18:28 | NUR ---
Pt arrived this afternoon from [facility], initial assesssments complete, med rec complete, no cognitive issues at this time.
[2019-11-12 19:45] VITALS: BP 167/65; PULSE 81; TEMP 97.4
[2019-11-12 22:27] LABS: CREATININE, serum 4.01 (0.66-1.25)
--- NOTE | 2019-11-12 22:37 | NUR ---
PATIENT DOING WELL THROUGHOUT NIGHT. 22 G IV STARTED TO R FA. UROSTOMY CONNECTED TO DRAINAGE BAG. WBG 293, 6 UNITS NOVOLOG GIVEN ALONG WITH 10 UNITS LEVEMIR. CRITICAL TROPONIN 1.580 CALLED TO BEDROS, CARDIOLOGY CONSULT AND CARDIAC ENZYMES ORDERED. NO FURTHER NEEDS AT THIS TIME. WILL CONTINUE TO MONITOR.
[2019-11-12 22:39] LABS: FRACTIONAL EXCRETION OF NA+ 2.7 %
[2019-11-12 23:30] VITALS: BP 115/60; PULSE 69; TEMP 98.2
[2019-11-13 04:41] VITALS: BP 154/52; PULSE 74; TEMP 98.6
[2019-11-13 07:31] VITALS: BP 160/41; PULSE 73; TEMP 98.4
[2019-11-13 07:43] LABS: ALBUMIN 3.6 gm/dL (3.5-5.0); CREATININE, serum 3.89 (0.66-1.25); PHOSPHOROUS 5.4 mg/dL (2.5-4.5); POTASSIUM 4.1 mmol/L (3.4-5.0)
[2019-11-13 07:51] LABS: BASO % 0.3 % (0.0-2.0); GRAN # 4.1 (1.4-6.5); GRAN % 70.4 % (42.2-75.2); LYMPH % 17.2 % (20.0-51.0); MEAN CELL VOLUME 99 fl (80.0-100.0); MEAN CORPUSCULAR HGB CONC 30 g/dl (33.0-37.0); MEAN PLATELET VOLUME 10.2 fl (7.4-10.4); MONO # 0.7 (0.1-0.6); MONO % 11.8 % (1.7-9.3); PLATELET COUNT 207 K/mm3 (130-400); RED BLOOD COUNT 2.81 M/mm3 (4.20-5.60)
[2019-11-13 07:58] LABS: HEMATOCRIT 27.8 % (42.0-52.0); HEMOGLOBIN 8.3 g/dl (13.5-18.0); MEAN CORPUSCULAR HEMOGLOBIN 30 pg (27.0-31.0); TROPONIN-I 2.98 ng/mL (0.000-0.035)
[2019-11-13 10:26] LABS: PROTHROMBIN TIME 11.8 SECONDS (9.7-12.8)
[2019-11-13 10:28] LABS: PARTIAL THROMBOPLASTIN TIME 30.9 SECONDS (26.0-37.0)
--- NOTE | 2019-11-13 10:49 | NUR ---
Pt nepping upon entry, easily awakened, no C/O pain, no confusion noted, taklative and answers questions appropriately, shift assessments complete, left Prt call light in rech, bed in lowest position.
[2019-11-13 12:14] VITALS: BP 162/43; PULSE 70; TEMP 98.6
[2019-11-13 16:01] VITALS: BP 135/7; PULSE 73; TEMP 97.6
--- NOTE | 2019-11-13 18:51 | NUR ---
Pt resting in th room today, no C/O pain, napped during the day, VS have remained stable.
[2019-11-13 20:11] VITALS: BP 143/61; PULSE 66; TEMP 98.2
[2019-11-13 23:04] VITALS: BP 109/58; PULSE 68; TEMP 98.1
--- NOTE | 2019-11-14 02:30 | NUR ---
LAST HEP Xa WAS 0.23. HEPARIN gtt RATE INCREASED TO 13.5 mL/HR.
[2019-11-14 05:12] VITALS: BP 139/57; PULSE 72; TEMP 97.8
--- NOTE | 2019-11-14 06:29 | NUR ---
UROSTOMY PATENT. NO c/o CHEST PAIN/PRESSURE. PT AFEBRILE. NEXT HEP Xa IS AT 0800.
[2019-11-14 07:33] VITALS: BP 118/60; PULSE 72; TEMP 97.3
--- NOTE | 2019-11-14 07:35 | NUR ---
Seen patient awake, lying on bed. On O2 at 2lpm via NC. With peripheral line at right forearm. With urostomy bag draining well. Patient denies any pain, no difficulty of breathing.
[2019-11-14 08:56] LABS: BASO % 0.3 % (0.0-2.0); GRAN # 4.5 (1.4-6.5); GRAN % 75.7 % (42.2-75.2); LYMPH # 0.7 (1.2-3.4); LYMPH % 12.4 % (20.0-51.0); MEAN CELL VOLUME 98 fl (80.0-100.0); MEAN CORPUSCULAR HGB CONC 31 g/dl (33.0-37.0); MEAN PLATELET VOLUME 10.2 fl (7.4-10.4); MONO # 0.7 (0.1-0.6); MONO % 10.9 % (1.7-9.3); PLATELET COUNT 192 K/mm3 (130-400); RED BLOOD COUNT 2.67 M/mm3 (4.20-5.60); REDCELL DISTRIBUTION WIDTH-CV 12.9 % (11.5-14.5)
[2019-11-14 08:59] LABS: HEMATOCRIT 26.1 % (42.0-52.0); HEMOGLOBIN 8.1 g/dl (13.5-18.0); MEAN CORPUSCULAR HEMOGLOBIN 30 pg (27.0-31.0)
[2019-11-14 09:16] LABS: ALBUMIN 3.6 gm/dL (3.5-5.0); CALCIUM 9.2 mg/dL (8.4-10.2); CREATININE, serum 3.47 (0.66-1.25); PHOSPHOROUS 4.5 mg/dL (2.5-4.5); POTASSIUM 4.3 mmol/L (3.4-5.0)
--- NOTE | 2019-11-14 09:30 | NUR ---
Latest hepa Xa is 0.41. Titraded heparin drip to 12.5
--- NOTE | 2019-11-14 09:55 | NUR ---
SW met with the patient to discuss a discharge plan. The patient lives in [place] with his , Analy. The patient has a cane and walker, if needed. The patient requires oxygen at home and receives supplies from [facility]. The patient's PCP is Dr. Miranda and patient receives medications from [facility] and they deliver, if needed. The patient has advanced directives in the EMR. The patient plans to return home. guest services ambassador will continue to follow to ensure a safe discharge.
--- NOTE | 2019-11-14 11:45 | NUR ---
Patient verbalized his gown is wet due to his urostomy. Drained urine and changed his briefs and gown. Checked on some leakage and will monitor if he can still feel some leaking on his urostomy.
[2019-11-14 13:03] VITALS: BP 99/49; PULSE 65; TEMP 97.3
--- NOTE | 2019-11-14 13:35 | NUR ---
PT/OT were ordered for the patient. patient financial services specialist will continue to follow.
[2019-11-14 15:57] VITALS: BP 100/48; PULSE 70; TEMP 98.2
--- NOTE | 2019-11-14 16:15 | NUR ---
HEPAXA RESULT, 0.35. NO CHANGES MADE TO PATIENT'S HEAPRIN DRIP.
[2019-11-14 19:59] VITALS: BP 118/42; PULSE 94; TEMP 98.4
--- NOTE | 2019-11-14 20:00 | NUR ---
Received report from PAMELA Penaloza and PAMELA Aguilar. Assessment complete. Alert and oriented. Denies any pain or discomfort at this time. Urostomy bag draining clear yello urine, bag in place. IV to RFA intact with heparin gtt infusing at 12.5ml/hr. Meds adminsitered as ordered. Needs met. Call light within reach.
[2019-11-15] VITALS (7 sets, daily range): BP systolic 108–159; BP diastolic 53–62; PULSE 67–80; TEMP 97.4–98.7
[2019-11-15 04:14] LABS: BASO % 0.4 % (0.0-2.0); GRAN # 3.9 (1.4-6.5); GRAN % 73.1 % (42.2-75.2); LYMPH # 0.7 (1.2-3.4); LYMPH % 13.8 % (20.0-51.0); MEAN CELL VOLUME 95 fl (80.0-100.0); MEAN CORPUSCULAR HGB CONC 31 g/dl (33.0-37.0); MEAN PLATELET VOLUME 9.6 fl (7.4-10.4); MONO # 0.7 (0.1-0.6); MONO % 12.3 % (1.7-9.3); PLATELET COUNT 177 K/mm3 (130-400); RED BLOOD COUNT 2.57 M/mm3 (4.20-5.60); REDCELL DISTRIBUTION WIDTH-CV 12.7 % (11.5-14.5)
[2019-11-15 04:15] LABS: HEMATOCRIT 24.4 % (42.0-52.0); HEMOGLOBIN 7.6 g/dl (13.5-18.0); MEAN CORPUSCULAR HEMOGLOBIN 30 pg (27.0-31.0)
[2019-11-15 04:24] LABS: ALBUMIN 3.5 gm/dL (3.5-5.0); CALCIUM 9.2 mg/dL (8.4-10.2); CREATININE, serum 3.28 (0.66-1.25); PHOSPHOROUS 4.4 mg/dL (2.5-4.5); POTASSIUM 4.2 mmol/L (3.4-5.0)
--- NOTE | 2019-11-15 06:09 | NUR ---
Emptied out pt urostomy throughout the night as requested. No complaints made during this shift. needs met. Call light within reach.
--- NOTE | 2019-11-15 07:08 | NUR ---
Report given to PAMELA Aguilar and PAMELA Penaloza.
--- NOTE | 2019-11-15 08:00 | NUR ---
Seen patient awake, sitting on bed. Alert and oriented. Denies any pain and difficulty of breathing. Patient has ongoing heparin drip at 12.5.
--- NOTE | 2019-11-15 10:15 | NUR ---
PT is recommending home for the patient. workforce services representative will contiue to follow.
--- NOTE | 2019-11-15 18:15 | NUR ---
Insulin given to patient for blood glucose of 241. Patient denies any pain. He verbalizes readiness to go home tomorrow.
--- NOTE | 2019-11-15 20:00 | NUR ---
Patient assessed at this time. Alert and oriented x 4, and able to make needs known. Denies having pain and discomfort at this time. Peripheral IV to right forearm flushed. Site is without redness, warmth, swelling, and pain. Reports chronic SOB with exertion, denies at rest. Continues to wear oxygen at 3 L/min via NC, baseline. LS CTA. Respirations even and unlabored. HRR. Capillary refill less than 3 seconds. Non-tenting skin turgor. BSAx4. Abdomen soft and non-tender. No edema. Voices no questions, needs, or concerns at this time. Resting in bed with call light within reach.
[2019-11-16 04:12] VITALS: BP 150/65; PULSE 75; TEMP 98.8
--- NOTE | 2019-11-16 04:21 | NUR ---
Patient complaining of level 4 pain. Given PRN APAP as requested. Voices no further questions, needs, or concerns at this time. Resting in bed with call light within reach. Continues to be on oxygen at 3 L/min via NC.
[2019-11-16 06:25] LABS: BASO % 0.3 % (0.0-2.0); GRAN # 4.2 (1.4-6.5); GRAN % 71.9 % (42.2-75.2); LYMPH # 0.9 (1.2-3.4); LYMPH % 14.5 % (20.0-51.0); MEAN CELL VOLUME 96 fl (80.0-100.0); MEAN CORPUSCULAR HGB CONC 31 g/dl (33.0-37.0); MEAN PLATELET VOLUME 10.1 fl (7.4-10.4); MONO # 0.8 (0.1-0.6); MONO % 12.8 % (1.7-9.3); PLATELET COUNT 172 K/mm3 (130-400); RED BLOOD COUNT 2.49 M/mm3 (4.20-5.60); REDCELL DISTRIBUTION WIDTH-CV 12.7 % (11.5-14.5)
[2019-11-16 06:26] LABS: HEMATOCRIT 23.9 % (42.0-52.0); HEMOGLOBIN 7.5 g/dl (13.5-18.0); MEAN CORPUSCULAR HEMOGLOBIN 30 pg (27.0-31.0)
[2019-11-16 06:47] LABS: ALBUMIN 3.4 gm/dL (3.5-5.0); CALCIUM 9.6 mg/dL (8.4-10.2); CREATININE, serum 3.06 (0.66-1.25); PHOSPHOROUS 4.1 mg/dL (2.5-4.5); POTASSIUM 4.1 mmol/L (3.4-5.0)
[2019-11-16 07:55] VITALS: BP 152/61; PULSE 75; TEMP 98.6
[2019-11-16 12:03] VITALS: BP 122/69; PULSE 71; TEMP 98.4
[2019-11-16 16:24] VITALS: BP 124/50; PULSE 76; TEMP 98.4
[2019-11-16 19:11] VITALS: BP 143/84; PULSE 94; TEMP 98.5
--- NOTE | 2019-11-16 20:15 | NUR ---
Patient assessed at this time. Alert and oriented x 4, and able to make needs known. Denies having pain and discomfort at this time. Peripheral IV to right forearm flushed. Site is without redness, warmth, swelling, and pain. On oxygen at 3 L/min via NC. Reports SOB is much better. Respirations even and unlabored. LS CTA. HRR. Capillary refill less than 3 seconds. Non-tenting skin turgor. BSAx4. Abdomen soft and non-tender. 1+ edema BLE. Urostomy present, urine is clear yellow. Voices no questions, needs, or concerns at this time. Resting in bed watching TV. Call light is within reach.
[2019-11-17 01:25] VITALS: BP 137/63; PULSE 77; TEMP 98.8
--- NOTE | 2019-11-17 04:41 | NUR ---
Patient complaining of pain to legs. Given PRN APAP as requested at this time.
[2019-11-17 05:35] VITALS: BP 147/56; PULSE 73; TEMP 98.6
--- NOTE | 2019-11-17 07:12 | NUR ---
Patient has not complained of any further pain or discomfort since receiving PRN APAP. Voices no questions, needs, or concerns at this time. Report given to day shift nurse.
[2019-11-17 07:16] VITALS: BP 120/50; PULSE 69; TEMP 98.2
[2019-11-17 07:22] LABS: BASO % 0.3 % (0.0-2.0); GRAN # 5.2 (1.4-6.5); GRAN % 76.5 % (42.2-75.2); LYMPH # 0.9 (1.2-3.4); LYMPH % 12.8 % (20.0-51.0); MEAN CELL VOLUME 96 fl (80.0-100.0); MEAN CORPUSCULAR HGB CONC 32 g/dl (33.0-37.0); MEAN PLATELET VOLUME 10.3 fl (7.4-10.4); MONO # 0.7 (0.1-0.6); MONO % 10.1 % (1.7-9.3); PLATELET COUNT 171 K/mm3 (130-400); RED BLOOD COUNT 2.45 M/mm3 (4.20-5.60); REDCELL DISTRIBUTION WIDTH-CV 12.8 % (11.5-14.5)
[2019-11-17 07:25] LABS: HEMATOCRIT 23.4 % (42.0-52.0); HEMOGLOBIN 7.4 g/dl (13.5-18.0); MEAN CORPUSCULAR HEMOGLOBIN 30 pg (27.0-31.0)
[2019-11-17 09:49] LABS: ALBUMIN 3.4 gm/dL (3.5-5.0); CALCIUM 9.8 mg/dL (8.4-10.2); CREATININE, serum 3.16 (0.66-1.25); PHOSPHOROUS 4.8 mg/dL (2.5-4.5); POTASSIUM 4.4 mmol/L (3.4-5.0)
[2019-11-17] MEDS ORDERED: PLAVIX 75MG TAB75 MG PO (10:08)
[2019-11-17] MEDS ORDERED: LIPITOR20 MG PO (10:08)
[2019-11-17] MEDS ORDERED: IMDUR 60MG60 MG/TAB PO (10:08)
[2019-11-17] MEDS ORDERED: ASPIRIN E.C. 8181 MG PO (10:10)
[2019-11-17] MEDS ORDERED: UNIPHYL 400MG400 MG PO (10:11)
[2019-11-17] MEDS ORDERED: GLUCOTROL 5M5 MG/TAB PO (10:11)
[2019-11-17] MEDS ORDERED: ZYLOPRIM 300MG300 MG PO (10:12)
[2019-11-17 12:10] VITALS: BP 90/64; PULSE 100
[2019-11-17 12:30] VITALS: BP 82/62; PULSE 101
[2019-11-17 13:36] VITALS: BP 93/64; PULSE 100
--- NOTE | 2019-11-17 14:59 | NUR ---
PATIENT DC TO HOME VIA PRIVATE VEHICLE ACCOMPANIED BY DAUGHTER RAHAT. PRINTED DC INSTRUCTIONS TO INCLUDE MEDICATIONS, AND FOLLOW UP REVIEWED WITH PATIENT AND DAUGHTER. aL QUESTIONS AND CONCERNS ANSWERED AFTER REVIEW.
== END 2019-11-17 14:30 | disposition home or self-care (01) | DRG 682 ==
LOC: MEDICAL 15:03
PROVIDERS: Internal Medicine Interventional Cardiology; ADMIT Internal Medicine Nephrology
DX: N17.9 Acute kidney failure, unspecified (principal); I21.4 Non-ST elevation (NSTEMI) myocardial infarction; F05 Delirium due to known physiological condition; C79.51 Secondary malignant neoplasm of bone; I50.30 Unspecified diastolic (congestive) heart failure; I13.0 Hypertensive heart and chronic kidney disease with heart failure and stage 1 through stage 4 chronic kidney disease, or unspecified chronic kidney disease; I25.10 Atherosclerotic heart disease of native coronary artery without angina pectoris; N18.4 Chronic kidney disease, stage 4 (severe); E87.6 Hypokalemia; G47.33 Obstructive sleep apnea (adult) (pediatric); E11.22 Type 2 diabetes mellitus with diabetic chronic kidney disease; E11.51 Type 2 diabetes mellitus with diabetic peripheral angiopathy without gangrene; E11.42 Type 2 diabetes mellitus with diabetic polyneuropathy; J43.9 Emphysema, unspecified; D50.9 Iron deficiency anemia, unspecified; T50.2X5A Adverse effect of carbonic-anhydrase inhibitors, benzothiadiazides and other diuretics, initial encounter; G89.29 Other chronic pain; C67.9 Malignant neoplasm of bladder, unspecified; Z95.5 Presence of coronary angioplasty implant and graft; Z98.42 Cataract extraction status, left eye; Z90.6 Acquired absence of other parts of urinary tract; Z90.79 Acquired absence of other genital organ(s); Z87.891 Personal history of nicotine dependence; Z79.4 Long term (current) use of insulin
CPT/HCPCS: J1644; J1815

== ENCOUNTER 2019-12-03 20:32 | Inpatient (IN) | payer MEDICARE, OTHER ==
[~2019-12-03] VITALS: Ht 175.3 cm; Wt 87.5 kg
--- NOTE | 2019-12-03 20:30 | NUR ---
Patient came in via wheelchair.. With O2 at 3lpm via NC. Patient came in due to shortness of air. He is alert and oriented. Medication reconcillation updated. Started INT on right forearm using G22. Patient has urostomy bag draining with clear yellow urine. With edema noted on bilateral lower extremities. Relatives opted to have DNI.
[~2019-12-03 20:32] MED LIST changes: +BASAGLAR K100 UNIT/1 SQ; +HUMALOG PEN100 U/ML SQ; +IMDUR 60MG60 MG/TAB PO; +LIPITOR20 MG PO; +NORVASC 10MG10 MG PO; +PLAVIX 75MG TAB75 MG PO; -THERA TABS1 TAB PO; +THERA1 TAB PO; +UNIPHYL 400MG400 MG PO
[2019-12-03 21:59] LABS: CALCIUM 8.2 mg/dL (8.4-10.2); CREATININE, serum 5.21 (0.66-1.25)
[2019-12-03 22:16] LABS: POTASSIUM 6.2 mmol/L (3.4-5.0)
--- NOTE | 2019-12-03 22:20 | NUR ---
Informed Dr. Stout via phone call that patient is already at room 352. Relayed lab results specifically K= 6.2 and Blood Glucose= 253mg/dl. Received orders. Informed patient and relatives regarding diet, fluid restriction of 1500ml, labs to be taken in the morning and frequency of accuchecks.
[2019-12-03 22:47] VITALS: BP 124/54; PULSE 91; TEMP 98.6
--- NOTE | 2019-12-04 01:30 | NUR ---
Seen patient sitting in the trash can and verbalized that he was about to poop and can't go to the bathroom since it's coming out already. Put on briefs to the patient. Noted to have shortness of breath due to exertion. Checked O2 sat= 85%. Increased oxygen to 4lpm, repositioned patient to bed and maintained on sitting position. O2 sats= 95%. Bed alarms on. Call button within reach. Bedside commode placed near patient.
[2019-12-04 03:32] VITALS: BP 154/53; PULSE 108; TEMP 99
--- NOTE | 2019-12-04 05:41 | NUR ---
Patient is awake, sitting on bed. O2 sat at 97% with O2 of 4lpm via NC. Denies any pain. Still with shortness of air.
--- NOTE | 2019-12-04 06:57 | NUR ---
Report given to day shift nurseLaureano. Patient is awake, sitting on bed.
[2019-12-04 08:09] VITALS: BP 154/54; PULSE 102; TEMP 98.7
--- NOTE | 2019-12-04 08:35 | NUR ---
Pt awake and alert upon entry, no C/O pain at this time, shift assessments complete, left Pt sitting on side of bed, bed in lowest position, call light in reach.
[2019-12-04 08:54] LABS: ALBUMIN 3.8 gm/dL (3.5-5.0); CALCIUM 7.7 mg/dL (8.4-10.2); CREATININE, serum 4.71 (0.66-1.25); PHOSPHOROUS 4.2 mg/dL (2.5-4.5); POTASSIUM 4.7 mmol/L (3.4-5.0)
--- NOTE | 2019-12-04 09:45 | NUR ---
Patient lives at home with his (Analy Bowman) in [place], [place] and plans to return home upon discharge. Patient is mostly independent with daily living activities and receives assistance and support as needed from his and local family including his daughter (Komal Torres). Patient is retired from the [employer] work and has a history of bladder cancer and also has kidney disease stage IV. Patient's primary care physician is Victor Manuel Miranda and also receives medical care from Osvaldo Stout. Patient's pharmacy is [facility]. Patient does have advance directives for healthcare completed (DPOA #1 is Analy Bowman [phone] or [phone] and DPOA #2 is daughter Komal Torres [phone]). business services manager will follow as needed.
[2019-12-04 11:37] VITALS: BP 160/58; PULSE 106
[2019-12-04 15:25] VITALS: BP 157/44; PULSE 84; TEMP 98.4
--- NOTE | 2019-12-04 18:34 | NUR ---
Pt resting in the room today, has been sleeping on and off throughout the day, no C/O pain, VS have remained stable.
--- NOTE | 2019-12-04 19:05 | NUR ---
Received report from Laureano. Patient is currently asleep on bed. With O2 at 3L via NC. On left arm restriction. Will continue to monitor.
[2019-12-04 20:31] VITALS: BP 188/56; PULSE 86; TEMP 98.3
--- NOTE | 2019-12-04 22:03 | NUR ---
Patient refused to finish the nebulizer treatment.
[2019-12-04 23:53] VITALS: BP 143/34; PULSE 55; TEMP 98.3
[2019-12-05 04:14] VITALS: BP 159/47; PULSE 77; TEMP 98.4
--- NOTE | 2019-12-05 06:24 | NUR ---
Patient denies any pain the whole night. Urostomy bag draining well with clear, yellow urine. Will endorse to day shift.
[2019-12-05 08:27] LABS: BASO % 0.1 % (0.0-2.0); GRAN # 5.7 (1.4-6.5); GRAN % 80.5 % (42.2-75.2); LYMPH # 0.7 (1.2-3.4); LYMPH % 10.1 % (20.0-51.0); MEAN CELL VOLUME 99 fl (80.0-100.0); MEAN CORPUSCULAR HGB CONC 31 g/dl (33.0-37.0); MEAN PLATELET VOLUME 9.8 fl (7.4-10.4); MONO # 0.6 (0.1-0.6); MONO % 8.9 % (1.7-9.3); PLATELET COUNT 167 K/mm3 (130-400); RED BLOOD COUNT 2.61 M/mm3 (4.20-5.60); REDCELL DISTRIBUTION WIDTH-CV 14.1 % (11.5-14.5)
[2019-12-05 08:30] LABS: HEMATOCRIT 25.7 % (42.0-52.0); HEMOGLOBIN 7.9 g/dl (13.5-18.0); MEAN CORPUSCULAR HEMOGLOBIN 30 pg (27.0-31.0)
[2019-12-05 08:36] LABS: ALBUMIN 3.7 gm/dL (3.5-5.0); CALCIUM 7.8 mg/dL (8.4-10.2); CREATININE, serum 4.35 (0.66-1.25); PHOSPHOROUS 4.2 mg/dL (2.5-4.5); POTASSIUM 4.3 mmol/L (3.4-5.0)
[2019-12-05 09:08] VITALS: BP 152/43; PULSE 83; TEMP 98.6
[2019-12-05 09:36] LABS: HIV 1/2 Antibodies Non-Reactive; HIV-1p24 Antigen Non-Reactive
--- NOTE | 2019-12-05 10:11 | NUR ---
Pt assessment completed and charted. Morning medications administered per JAN. Pt has minimal labored breathing, denies SOB at this time, currently on 2L NC. LS bases diminished. Heart RRR. BSx4. Pulses strong bilaterally. BLE edema 2+ noted to ankles and feet. RFA INT IV flushes w/o complications. Urostommy present, emptied at shift change, no complications noted. Pt denies dizziness, pain, N/V/D. No other concerns expressed at this time. Call light within reach. pt sitting in recliner at bedside.
[2019-12-05 11:18] VITALS: BP 134/41; PULSE 66; TEMP 97.4
[2019-12-05 15:48] LABS: HEPATITIS B SURFACE ANTIGEN Negative (Negative); HEPATITIS C VIRUS ANTIBODY Negative (Negative)
[2019-12-05 16:30] VITALS: BP 189/60; PULSE 82; TEMP 98.3
--- NOTE | 2019-12-05 19:39 | NUR ---
Pt had uneventful day. Vein mapping completed. Consult w/ Magalys for 12/06/2019. Urostomy emptied, 525 output recorded.
[2019-12-05 19:53] VITALS: BP 187/45; PULSE 82; TEMP 98.2
--- NOTE | 2019-12-05 20:45 | NUR ---
Shift assessment complete. Pt resting in bed, awake, a&o, cooperative c cares. Pt denies pain or any other c/o at this time. INT patent. Urostomy noted. O2 per NC. Pt denies further needs at this time. Call light in reach, bed alarm on. Will continue to monitor.
--- NOTE | 2019-12-05 21:35 | NUR ---
REPORT TAKEN FROM PAMELA ALTAMIRANO; CARE OF PT ASSUMED AT THIS TIME.
--- NOTE | 2019-12-05 21:45 | NUR ---
Report given to Tanvir SANTIAGO to assume pt cares. Pt resting in bed, condition unchanged. Pt frustrated over urostomy drainage bag leaking but refuses bag change at this time, states "Just don't worry about it... I'm laid down now". No other needs. Call light in reach.
[2019-12-05 23:31] VITALS: BP 165/54; PULSE 54; TEMP 98.1
--- NOTE | 2019-12-06 00:15 | NUR ---
PT IS SLEEPING QUIETLY IN BED. NO S/S OF DISTRESS NOTED. CALL LIGHT WITHIN REACH.
--- NOTE | 2019-12-06 02:27 | NUR ---
PT SITTING UP ON SIDE OF BED WITH EYES CLOSED. CALL LIGHT WITHIN REACH.
[2019-12-06 03:29] VITALS: BP 152/63; PULSE 79; TEMP 98.4
--- NOTE | 2019-12-06 03:59 | NUR ---
OSTOMY APPLIANCE AND FLANGE CHANGED AT THIS TIME. AREA CLEANED AND DRIED, SKIN PREP APPLIED. STOMA PINK, NO SKIN ISSUES NOTED. PT TOLERATED WELL. PT REPORTS HAVING PAIN TO HIS FEET CURRENTLY, REQUESTS TYLENOL. STATES HE TYPICALLY TAKES TWO TYLENOL AT NIGHT WHEN HAVING PAIN. TYLENOL IS CURRENTLY UNAVAILABLE PER MAR; REASSURED PT THAT REQUEST WILL BE PASSED ON TO HIS PHYSICIAN IN AM ROUNDS. PT DENIES ANY OTHER NEEDS. PT BACK TO BED, CALL LIGHT WITHIN REACH.
--- NOTE | 2019-12-06 05:33 | NUR ---
PT HAS SLEPT OFF AND ON THROUGH THE NIGHT. OCC PT WILL SIT UP ON EDGE OF BED FOR A WHILE THEN WILL LAY BACK DOWN AND REST FOR A PERIOD. PT HAS VOICED FRUSTRATIONS OCC REGARDING THE OSTOMY HAVING LEAKING ISSUES. APPLIANCE CHANGED AT APPROX 0330 AND HAS NOT HAD ANY LEAKING SINCE THEN. PT REPORTS PAIN TO BILAT FEET D/T NEUROPATHY, UNABLE TO ADMINISTER TYLENOL REQUESTED BUT ASSURED PT WE WILL NOTIFY HIS PHYSICIAN OF THIS DESIRE. PT USES CALL LIGHT APPROPRIATELY.
--- NOTE | 2019-12-06 07:17 | NUR ---
REPORT GIVEN TO PAMELA ZHU.
[2019-12-06 07:43] VITALS: BP 161/41; PULSE 82; TEMP 98
[2019-12-06 08:15] LABS: BASO % 0.3 % (0.0-2.0); GRAN % 78.7 % (42.2-75.2); LYMPH # 0.8 (1.2-3.4); LYMPH % 11.9 % (20.0-51.0); MEAN CELL VOLUME 98 fl (80.0-100.0); MEAN CORPUSCULAR HGB CONC 30 g/dl (33.0-37.0); MEAN PLATELET VOLUME 9.6 fl (7.4-10.4); MONO # 0.6 (0.1-0.6); MONO % 8.6 % (1.7-9.3); PLATELET COUNT 174 K/mm3 (130-400); RED BLOOD COUNT 2.63 M/mm3 (4.20-5.60)
[2019-12-06 08:22] LABS: HEMATOCRIT 25.7 % (42.0-52.0); HEMOGLOBIN 7.8 g/dl (13.5-18.0); MEAN CORPUSCULAR HEMOGLOBIN 30 pg (27.0-31.0)
[2019-12-06 08:26] LABS: ALBUMIN 3.6 gm/dL (3.5-5.0); CALCIUM 7.7 mg/dL (8.4-10.2); CREATININE, serum 4.54 (0.66-1.25); PHOSPHOROUS 4.2 mg/dL (2.5-4.5); POTASSIUM 4.5 mmol/L (3.4-5.0)
--- NOTE | 2019-12-06 09:04 | NUR ---
Pt assessment completed and charted. Morning medications adminsitered per JAN. Pt sitting on EOB, eating breakfast. Pt is A&O, independent in room. RFA INT IV flushes w/o complications. Pt on 2L NC, breathing is even but labored. LS diminished throughout. Heart RRR. Radial pulses strong bilaterally. 2+ edema noted to LE, 3+ edema to ankles and feet. Urostomy in place, CDI, 300 ml output emptied, new bag changed per car shifter in middle of night. Pt denies pain at this time. Pt denies dizziness, N/V/D, chest pain. NO other concerns expressed at this time.
[2019-12-06 10:41] VITALS: BP 153/43; PULSE 70; TEMP 98
[2019-12-06 16:26] VITALS: BP 158/51; PULSE 77; TEMP 98.1
--- NOTE | 2019-12-06 18:15 | NUR ---
Pt to have dialysis catheter placed tomorrow 12/07/2019, consent signed and on chart, pt verbalizes understandingof procedure, all questions answered. Pt states he is "having pain all over" but unable to rate or describe and then quickly jumps to "where is my dinner". Pt stating he is cold, offered and given warm blanket. Urostomy emptied w/ 200 output. No other concerns at this time.
--- NOTE | 2019-12-06 20:00 | NUR ---
Received report from PAMELA Ceron. Assessment complete. Alert and oriented. Denies any pain or discomfort at this time. Scheduled meds administered. Pt understands NPO status after midnight in preparation for procedure in AM. Urostomy bag in place. Needs met. Call light within reach.
[2019-12-06 20:16] VITALS: BP 174/46; PULSE 80; TEMP 98.5
[2019-12-06 23:39] VITALS: BP 152/41; PULSE 72; TEMP 98.7
[2019-12-07] VITALS (10 sets, daily range): BP systolic 120–178; BP diastolic 36–72; PULSE 65–80; TEMP 97.9–98.9
--- NOTE | 2019-12-07 05:57 | NUR ---
Pt NPO since midnight. No complaints made during this shift. Needs met. Call light within reach.
--- NOTE | 2019-12-07 07:00 | NUR ---
Report given to PAMELA Ceron.
[2019-12-07 07:34] LABS: BASO % 0.2 % (0.0-2.0); GRAN # 4.4 (1.4-6.5); GRAN % 75.1 % (42.2-75.2); LYMPH # 0.8 (1.2-3.4); LYMPH % 13.4 % (20.0-51.0); MEAN CELL VOLUME 98 fl (80.0-100.0); MEAN CORPUSCULAR HGB CONC 31 g/dl (33.0-37.0); MEAN PLATELET VOLUME 9.9 fl (7.4-10.4); MONO # 0.6 (0.1-0.6); MONO % 10.8 % (1.7-9.3); PLATELET COUNT 172 K/mm3 (130-400); RED BLOOD COUNT 2.54 M/mm3 (4.20-5.60); REDCELL DISTRIBUTION WIDTH-CV 14.1 % (11.5-14.5)
[2019-12-07 07:36] LABS: HEMATOCRIT 24.8 % (42.0-52.0); HEMOGLOBIN 7.6 g/dl (13.5-18.0); MEAN CORPUSCULAR HEMOGLOBIN 30 pg (27.0-31.0)
[2019-12-07 07:42] LABS: ALBUMIN 3.7 gm/dL (3.5-5.0); CREATININE, serum 4.18 (0.66-1.25); PHOSPHOROUS 3.9 mg/dL (2.5-4.5); POTASSIUM 3.9 mmol/L (3.4-5.0)
--- NOTE | 2019-12-07 08:29 | NUR ---
SEE MERGE DOCUMENTATION FOR MEDICATION ADMINISTRATION ASSESSMENTS AND INTRA/POST PROCEDURE SEDATION ASSESSMENTS.
--- NOTE | 2019-12-07 08:30 | NUR ---
Pt down for procedure at this time.
--- NOTE | 2019-12-07 10:00 | NUR ---
Pt back from procedure at this time, post op vitals monitoring in progress. Pt is sleepy/drowsy, currently on 3L NC satting mid 90s. Pt easily awakened to verbal stimuli, pt is A&O. Denies nausea or pain at this time. Rt chest dialysis catheter placed, covered w/ gauze and tegarderm. Daughter at bedside. No other concerns at this time.
--- NOTE | 2019-12-07 12:00 | NUR ---
Pt assessment completed and charted, medications administered per MAR. Pt A&O, sleepy from procedure. LS diminished throughout, pt on 3L NC, breathing is labored but even. Dialysis catheter to rt chest in place, site is CDI, no complications. Pt denies pain. Radial pulses strong bilaterally. RFA INT IV flushes w/o complications. Urostomy bag in place to RLQ. Heart RRR. Pt denies N/V/D, dizziness, chest pain, abdominal pain. No other concerns expressed at this time.
--- NOTE | 2019-12-07 14:45 | NUR ---
Pt down for dialysis at this time. Urostomy bag was leaking, new bag changed w/o complications. No other concerns noted. pt has been pretty sleepy since returning from dialysis catheter placement this morning.
--- NOTE | 2019-12-07 15:56 | NUR ---
Pt receiving blood transfusion. Consent signed and on chart. Pt receiving first unit of blood during dialysis. Verified w/ PAMELA Jeter. PAMELA Fong in dialysis is w/ patient. VSS.
--- NOTE | 2019-12-07 17:30 | NUR ---
Pt back from dialysis at this time. VSS. Pt A&O, more awake than he has been throughout the day. Pt was c/o of rt shoulder and back pain and leg cramps during dialysis according to PAMELA Fong. Order for tylenol received per Argelia. Pt denies need for tylenol at this time, requesting that he receive some prior to dialysis tomorrow. Per PAMELA Fong, Pt's right shoulder and back pain subsided after she stopped pulled fluid. Pt eating dinner on EOB w/ daughter at bedside. No complaints at this time.
--- NOTE | 2019-12-07 20:00 | NUR ---
Received report from PAMELA Ceron. Assessment complete. Pt sitting up on side of bed. Alert and oriented. No complaints made at this time. Meds administered as ordered. Dialysis cath to RIJ in place with, dressing saturated in mod amount of blood, no swelling or reddness around site, denies pain to site. RF INT flushed, intact, dressing CDI. Noted SOB on rest, pt states his breathing is better today. On 3LO2 NC, SPO2 95%. Urostomy bag in place to RLQ abdomen, bright pink/red stoma, draining clear yellow urine. Needs attended too. Call light within reach.
--- NOTE | 2019-12-07 22:00 | NUR ---
20G IV initiated to RFA to administer 1unit PRBC. Pt tolerated well without complaints. Flushed and dressing in place.
[2019-12-07 23:23] LABS: HEPATITIS B SURFACE ANTIBODY <2.0 (())
[2019-12-08] VITALS (12 sets, daily range): BP systolic 150–176; BP diastolic 42–64; PULSE 64–93; TEMP 97.9–99.1
--- NOTE | 2019-12-08 02:20 | NUR ---
2nd unit PRBC transfused. No complaints or s/s or adverse reactions. Pt sitting up on side of bed. C/O pain/numbness to RLE and requested Tylenol. PRN 500mg Tylenol administered with small sip of water. Pt layed back in bed. Needs met. Call light within reach. Pt understands NPO status for procedure in AM>
--- NOTE | 2019-12-08 05:34 | NUR ---
Pt sitting up on side of bed without complaints. NPO status since midnight. Needs attended too. Call light within reach.
--- NOTE | 2019-12-08 07:08 | NUR ---
Report given to PAMELA Welch.
[2019-12-08 07:21] LABS: BASO % 0.4 % (0.0-2.0); GRAN # 3.7 (1.4-6.5); GRAN % 70.7 % (42.2-75.2); LYMPH # 0.9 (1.2-3.4); LYMPH % 16.8 % (20.0-51.0); MEAN CELL VOLUME 96 fl (80.0-100.0); MEAN CORPUSCULAR HGB CONC 31 g/dl (33.0-37.0); MEAN PLATELET VOLUME 10.3 fl (7.4-10.4); MONO # 0.6 (0.1-0.6); MONO % 11.5 % (1.7-9.3); PLATELET COUNT 147 K/mm3 (130-400); RED BLOOD COUNT 3.01 M/mm3 (4.20-5.60); REDCELL DISTRIBUTION WIDTH-CV 14.6 % (11.5-14.5)
[2019-12-08 07:22] LABS: HEMOGLOBIN 8.9 g/dl (13.5-18.0); MEAN CORPUSCULAR HEMOGLOBIN 30 pg (27.0-31.0)
[2019-12-08 07:36] LABS: ALBUMIN 3.3 gm/dL (3.5-5.0); CALCIUM 7.7 mg/dL (8.4-10.2); CREATININE, serum 3.48 (0.66-1.25); PHOSPHOROUS 4.1 mg/dL (2.5-4.5); POTASSIUM 4.3 mmol/L (3.4-5.0)
--- NOTE | 2019-12-08 08:06 | NUR ---
Pt taken via bed to OR by Missael Francisco. Daughter followed to surgical waiting area.
--- NOTE | 2019-12-08 10:20 | NUR ---
Pt returned via bed to room 352. Pt drowsy. VSS-see flowsheet. Left forearm surgical site dressing clean, dry and intact. IV patent to right FA. Daughter returned to room with pt. Bedside report received from LISA Schwartz RN and report via phone from Augusto Kaur CRNA.
--- NOTE | 2019-12-08 14:51 | NUR ---
Pt had AV fistula placed this morning. Went to dialysis at 1250 via bed as pt was still drowsy from surgery. Pts urostomy was emptied prior to dialysis. Pt has not received his ordered medications due to NPO for surgery, then gone to dialysis prior to arousing for oral intake.
--- NOTE | 2019-12-08 16:33 | NUR ---
Dog Races Manager spoke with RNKimberly about ordering PT/OT for patient for discharge recommendations. SW to continue to follow.
--- NOTE | 2019-12-08 20:00 | NUR ---
Received report from PAMELA Welch. Assessment complete. Alert and oriented. Pt sitting up on side of bed. Denies any pain or discomfort at this time. Meds administered as ordered. Dyspnea at rest noted, denies SOB, on 3LO2 NC SpO2 93%. Dialysis cath to RUChest in place, dressing with mod amt bloody drainage with tegaderm in place. Edcucated pt not to lay on right side to avoid pressure. Kerlix wrap CDI to LF fistula, no drainage noted. Urostomy bag in place draining clear dark yellow urine, stoma bright red/pink. Needs attended too. Call light within reach.
[2019-12-09 04:47] VITALS: BP 168/46; PULSE 78; TEMP 99.2
--- NOTE | 2019-12-09 05:17 | NUR ---
No complaints made during this shift. Meds given as ordered. Urostomy bag drained. Needs met. Call light within reach.
--- NOTE | 2019-12-09 07:02 | NUR ---
Report given to PAMELA Ceron.
[2019-12-09 07:19] VITALS: BP 159/46; PULSE 73; TEMP 98.1
--- NOTE | 2019-12-09 11:16 | NUR ---
Pt assessment completed and charted. Pt laying in bed, A&O. Pt on 3L NC, breathing is shallow and labored, PARTIDA present, LS diminished throughout. Pt has 2 INT RFA IVs that flush w/o complications. Rt chest dialysis catheter that has bloody drainage to gauze, will be changed in dialysis. New LFA fistula, bruit and thrill present. gauze removed by Dr. Dowell this morning, site is CDI. Pt has RLQ urostomy, emptied by CYBER SECURITY this morning, no leaking noted. Per CYBER SECURITY, new bed change and gown on pt completed this morning. Pt denies pain at this time, states he would like some tylenol prior to dialysis, his "legs start to cramp a lot" during dialysis. BLE and BUE 1+ edema noted. Pulses strong bilaterally. heart RRR. Morning medications administered per JAN. No other cocnerns expressed at this time. POC discussed w/ pt who verbalized understanding.
--- NOTE | 2019-12-09 12:30 | NUR ---
Pt down to dialysis at this time. pt received tylenol per request for leg cramps.
[2019-12-09 13:56] LABS: BASO % 0.1 % (0.0-2.0); GRAN # 6.6 (1.4-6.5); GRAN % 79.1 % (42.2-75.2); LYMPH # 0.8 (1.2-3.4); LYMPH % 9.2 % (20.0-51.0); MEAN CELL VOLUME 99 fl (80.0-100.0); MEAN CORPUSCULAR HGB CONC 30 g/dl (33.0-37.0); MEAN PLATELET VOLUME 10.1 fl (7.4-10.4); MONO # 0.9 (0.1-0.6); PLATELET COUNT 136 K/mm3 (130-400); RED BLOOD COUNT 3.27 M/mm3 (4.20-5.60); REDCELL DISTRIBUTION WIDTH-CV 14.5 % (11.5-14.5)
[2019-12-09 13:59] LABS: HEMATOCRIT 32.3 % (42.0-52.0); HEMOGLOBIN 9.7 g/dl (13.5-18.0); MEAN CORPUSCULAR HEMOGLOBIN 30 pg (27.0-31.0)
[2019-12-09 14:15] LABS: ALBUMIN 3.7 gm/dL (3.5-5.0); CALCIUM 8.3 mg/dL (8.4-10.2); CREATININE, serum 2.89 (0.66-1.25); PHOSPHOROUS 3.2 mg/dL (2.5-4.5); POTASSIUM 4.4 mmol/L (3.4-5.0)
--- NOTE | 2019-12-09 16:00 | NUR ---
Pt back from dialysis at this time. Sleeping in bed.
--- NOTE | 2019-12-09 16:21 | NUR ---
Test Puller met with patient to discuss PT/OT recommendation for post acute rehab. Patient expressed he does not really want to go anywhere but home. With patient's permission, LAUREN contacted patient's , Analy to discuss PT/OT recommendations. Analy expressed understanding and feels patient would benefit if that's what is recommended. LAUREN presented Patient Preference Form and discussed Medicare.gov list of options for post acute rehab. Patient states first preference would be [facility] and second preference would be [facility] in [place], [place]. LAUREN placed Patient Preference Form on chart and faxed referrals to [facility] and [facility]. LAUREN received a phone call from patient's daughter, Leslie (cell #[phone]). LAUREN provided update on discharge planning. Leslie advised her preference would be for patient to go to [facility]. LAUREN will continue to follow.
[2019-12-09 18:08] VITALS: BP 130/50; PULSE 60
[2019-12-09 18:16] VITALS: BP 168/46; PULSE 69
--- NOTE | 2019-12-09 18:53 | NUR ---
Report given to PAMELA Maravilla. Pt sleeping in bed, arouses to verbal and physical stimuli. VSS. No other concerns noted.
[2019-12-09 19:24] VITALS: BP 142/34; PULSE 68; TEMP 98.2
--- NOTE | 2019-12-09 22:54 | NUR ---
Pt alert but not oriented. Resting in bed, now on 4l of o2. Has urostomy to RLQ, clear yellow urine. IV to R forearm x2, both CD&I. Has dialysis cath to right side of chest, gauze and tape, CD&I. Denies pain or needs at this time. Call light within reach, will continue to monitor
[2019-12-09 23:52] VITALS: BP 125/38; PULSE 65; TEMP 98.7
--- NOTE | 2019-12-10 01:26 | NUR ---
Pt in a foul mood. Yelling at nurse to change his O2 cannula, stating it is "on fire." This nurse stated it was not hot and it was working properly. Patient then yelled, "I'm tired of this shit, I want to talk to your mold construction supervisor." tank house operator helper in room with patient now.
[2019-12-10 04:52] VITALS: BP 149/38; PULSE 71; TEMP 98.2
[2019-12-10 09:41] VITALS: BP 144/45; PULSE 71; TEMP 97.8
[2019-12-10 09:43] LABS: BASO % 0.3 % (0.0-2.0); GRAN # 5.8 (1.4-6.5); GRAN % 81.2 % (42.2-75.2); HEMATOCRIT 33.2 % (42.0-52.0); HEMOGLOBIN 10.1 g/dl (13.5-18.0); LYMPH # 0.6 (1.2-3.4); LYMPH % 8.6 % (20.0-51.0); MEAN CELL VOLUME 101 fl (80.0-100.0); MEAN CORPUSCULAR HEMOGLOBIN 31 pg (27.0-31.0); MEAN CORPUSCULAR HGB CONC 30 g/dl (33.0-37.0); MEAN PLATELET VOLUME 10.4 fl (7.4-10.4); MONO # 0.7 (0.1-0.6); MONO % 9.2 % (1.7-9.3); PLATELET COUNT 137 K/mm3 (130-400); REDCELL DISTRIBUTION WIDTH-CV 14.4 % (11.5-14.5)
--- NOTE | 2019-12-10 09:45 | NUR ---
Pt assessment completed and charted. Morning medications administered per JAN. Pt A&O, some confusion of time of day, probably d/t pt being tired from all procedures and starting dialysis today. Pt has labored breathing, PARTIDA, currently on 4L NC. Pt sitting up on EOB at this time. Pt currently denies pain, dizziness, SOB, N/V/D, abdominal pain. LS diminished throughout, heart RRR. Pt has Rt chest dialysis catheter in place, site is CDI, covered w/ gauze, some brusing noted. LFA fistula, thrill and bruit noted. RLQ urostomy in place draining dark yellow urine w/ mucus present. pulses strong bilaterally. 1+ edema noted in bilateral LE and UE. Edema has improved over last couple of days. Pt wants to be covered up and go back to bed. No other concerns expressed at this time.
[2019-12-10 09:58] LABS: ALBUMIN 3.8 gm/dL (3.5-5.0); CALCIUM 8.3 mg/dL (8.4-10.2); CREATININE, serum 4.22 (0.66-1.25); PHOSPHOROUS 4.7 mg/dL (2.5-4.5); POTASSIUM 5.2 mmol/L (3.4-5.0)
[2019-12-10 13:25] VITALS: BP 147/41; PULSE 67; TEMP 98.6
[2019-12-10 17:47] VITALS: BP 136/53; PULSE 73; TEMP 97.5
[2019-12-10 18:59] VITALS: BP 133/46; PULSE 97; TEMP 97.8
--- NOTE | 2019-12-10 19:47 | NUR ---
Pt slept most of day, didn't want to work with therapy. Daughter and family stopped in for visit, will visit again tomorrow. pt was a little grumpy after waking up, around 1730. Pt slightly confused at where he is. Pt is oriented to situation, how he got here, how long he has been here. Pt disoriented to time of day and year. pt oriented to self and situation. Talked w/ pt about POC, he verbalized understanding. Pt sitting on EOB, requesting fresh ice water. NO other needs expressed at this time.
--- NOTE | 2019-12-10 20:00 | NUR ---
Received report from PAMELA Ceron. Assessment complete. Alert and oriented, confused with the time of day. c/o aching pain to bilateral feet, rate 5/10, PRN Tylenol administered as requested by pt. Denies any other discomfort. Dialysis cath to Rt upper chest intact, dressing in place, no drainage, ecchymosis noted without pain. LFA fistula with bruit and thrill, ecchymosis to site, denies pain, pulse palpable. Urostomy bag in place, draining dark yellow clear urine. INT to RF x2 intact, flushed, dressing CDI. Needs attended too. Meds administered as ordered. Call light within reach.
[2019-12-10 23:42] VITALS: BP 101/40; PULSE 98; TEMP 98.4
--- NOTE | 2019-12-11 05:34 | NUR ---
Pt made no complaints during the night. Was found sitting up on side of bed a few times during the night without any complaints of discomfort. Noted small amount of bleeding from scabbed over incision to LF fistula site, bandage in place. Needs attended too. Call light within reach.
[2019-12-11 05:38] VITALS: BP 148/41; PULSE 61; TEMP 97.9
--- NOTE | 2019-12-11 07:09 | NUR ---
Report given to PAMELA Tinsley.
[2019-12-11 07:51] VITALS: BP 145/43; PULSE 64; TEMP 98.5
--- NOTE | 2019-12-11 08:33 | NUR ---
Pt sleeping upon entry, easily awakened, no C/O pain at this time, shift assessments complete, left Pt call light in reach, bed in lowest position.
[2019-12-11 10:17] LABS: BASO % 0.3 % (0.0-2.0); GRAN # 4.9 (1.4-6.5); GRAN % 77.1 % (42.2-75.2); LYMPH # 0.6 (1.2-3.4); LYMPH % 9.8 % (20.0-51.0); MEAN CELL VOLUME 98 fl (80.0-100.0); MEAN CORPUSCULAR HGB CONC 30 g/dl (33.0-37.0); MEAN PLATELET VOLUME 10.7 fl (7.4-10.4); MONO # 0.8 (0.1-0.6); PLATELET COUNT 129 K/mm3 (130-400); RED BLOOD COUNT 2.91 M/mm3 (4.20-5.60); REDCELL DISTRIBUTION WIDTH-CV 14.1 % (11.5-14.5)
[2019-12-11 10:23] LABS: HEMATOCRIT 28.4 % (42.0-52.0); HEMOGLOBIN 8.6 g/dl (13.5-18.0); MEAN CORPUSCULAR HEMOGLOBIN 30 pg (27.0-31.0)
[2019-12-11 10:29] LABS: ALBUMIN 3.3 gm/dL (3.5-5.0); CALCIUM 8.1 mg/dL (8.4-10.2); CREATININE, serum 5.98 (0.66-1.25); PHOSPHOROUS 4.3 mg/dL (2.5-4.5); POTASSIUM 4.4 mmol/L (3.4-5.0)
[2019-12-11 12:02] VITALS: BP 128/55; PULSE 58; TEMP 98.4
[2019-12-11 16:22] VITALS: BP 175/38; PULSE 68; TEMP 97.7
--- NOTE | 2019-12-11 18:27 | NUR ---
Pt rested and slept today in the room, no C/O pain throughout the day, VS have remained stable.
--- NOTE | 2019-12-11 20:00 | NUR ---
Received report from PAMELA Tinsley. Assessment complete. Alert and oriented but confused with the time of day. Denies any pain or discomfort at this time. Meds administered as ordered. INT to RF x2 intact, flushed, dressing CDI. Dialysis cath to RIJ intact, dressing CDI, slight ecchymosis above dressing. LFA fistula with bruit and thrill, ecchymotic. Urostomy bag in place draining clear dark yellow urine, bag drained. On 4LOC NC. Needs attended too. Call light within reach.
[2019-12-11 21:07] VITALS: BP 182/49; PULSE 72; TEMP 97.9
--- NOTE | 2019-12-11 23:33 | NUR ---
Patient refused treatment.
[2019-12-12] VITALS (7 sets, daily range): BP systolic 153–193; BP diastolic 35–69; PULSE 61–73; TEMP 97.6–98.3
--- NOTE | 2019-12-12 05:33 | NUR ---
Pt uneventful during this shift. Needs attended too. No complaints made. Was found sitting up on side of bed a few times throughout the night without complaints. Call light within reach.
--- NOTE | 2019-12-12 07:16 | NUR ---
Report given to PAMELA Tinsley.
--- NOTE | 2019-12-12 08:09 | NUR ---
Pt sleeping upon entry, easily awakened, no C/O pain this morning, shift assessments complete, left Pt call light in reach, bed in lowest position.
[2019-12-12 11:17] LABS: BASO % 0.5 % (0.0-2.0); GRAN # 5.2 (1.4-6.5); GRAN % 79.4 % (42.2-75.2); LYMPH # 0.5 (1.2-3.4); LYMPH % 8.2 % (20.0-51.0); MEAN CELL VOLUME 96 fl (80.0-100.0); MEAN CORPUSCULAR HGB CONC 31 g/dl (33.0-37.0); MEAN PLATELET VOLUME 10.2 fl (7.4-10.4); MONO # 0.7 (0.1-0.6); PLATELET COUNT 136 K/mm3 (130-400); RED BLOOD COUNT 3.02 M/mm3 (4.20-5.60); REDCELL DISTRIBUTION WIDTH-CV 14.1 % (11.5-14.5)
[2019-12-12 11:19] LABS: HEMATOCRIT 28.9 % (42.0-52.0); MEAN CORPUSCULAR HEMOGLOBIN 30 pg (27.0-31.0)
[2019-12-12 11:23] LABS: ALBUMIN 3.5 gm/dL (3.5-5.0); CREATININE, serum 6.69 (0.66-1.25); PHOSPHOROUS 4.7 mg/dL (2.5-4.5); POTASSIUM 4.2 mmol/L (3.4-5.0)
--- NOTE | 2019-12-12 14:36 | NUR ---
Creative Developer faxed updates to [facility] and [facility]. LAUREN spoke to Bambi at [facility] who advised due to patient need for Dialysis and potential need for Chemo, they would not be able to accept because they would not be able to accommodate those needs. LAUREN spoke with Viktoria at [facility] who advised they would need Dr to call prior to acceptance. LAUREN and Viktoria also discussed possible discharge today after dialysis. Per RN, Laureano patient to get done with dialysis at about 1630. Viktoria states they cannot accept patient today that late and that they prefer patient's to arrive prior to 1600 for admissions. LAUREN called Dr. Stout and left a message. LAUREN also left note on patient's chart with contact information for Dr. Henry (ph#[phone]), accepting physician for [facility]. LAUREN contacted patient's daughter, Leslie to provide update. SW to continue to follow.
--- NOTE | 2019-12-12 18:17 | NUR ---
Pt rested in the room this morning, no C/O pain during the day, left floor this afternoon for dialysis, 2.3L fluid removed from Pt, VS have remained stable.
--- NOTE | 2019-12-12 18:56 | NUR ---
Report given to PAMELA Ayala.
--- NOTE | 2019-12-12 19:34 | NUR ---
Received report from PAMELA Tinsley.
--- NOTE | 2019-12-12 20:00 | NUR ---
Assessment complete. Pt laying in bed. Alert and oriented. Denies any pain or discomfort, denies SOB. Pain to LF upon touch, ecchymosis, no swelling or drainage to LF fistula, with bruit and thrill. Dialysis cath to RIJ intact, dressing in place, no drainage or swelling. Urostomy bag in place to , draining yellow urine with scant amount of sediment. On 4LO2 NC. Meds administered as ordered. Needs attended too. Call light within reach.
[2019-12-13 04:36] VITALS: BP 190/47; PULSE 62; TEMP 97.7
--- NOTE | 2019-12-13 05:34 | NUR ---
Pt uneventful during this shift. Had questions on his plan of care and when he will be discharged. Explained to pt plan of care to be discharged to [facility] in the morning. Pt stated understanding and went back to sleep. Needs met. Call light within reach.
--- NOTE | 2019-12-13 07:01 | NUR ---
Report given to VIKASH Tinsley.
[2019-12-13 08:03] LABS: BASO % 0.3 % (0.0-2.0); GRAN # 4.2 (1.4-6.5); GRAN % 72.6 % (42.2-75.2); LYMPH # 0.7 (1.2-3.4); MEAN CELL VOLUME 97 fl (80.0-100.0); MEAN CORPUSCULAR HGB CONC 31 g/dl (33.0-37.0); MEAN PLATELET VOLUME 10.6 fl (7.4-10.4); MONO # 0.8 (0.1-0.6); MONO % 14.6 % (1.7-9.3); PLATELET COUNT 147 K/mm3 (130-400); RED BLOOD COUNT 3.06 M/mm3 (4.20-5.60); REDCELL DISTRIBUTION WIDTH-CV 14.2 % (11.5-14.5)
[2019-12-13 08:05] LABS: HEMATOCRIT 29.6 % (42.0-52.0); HEMOGLOBIN 9.1 g/dl (13.5-18.0); MEAN CORPUSCULAR HEMOGLOBIN 30 pg (27.0-31.0)
[2019-12-13 08:10] LABS: ALBUMIN 3.6 gm/dL (3.5-5.0); CALCIUM 8.9 mg/dL (8.4-10.2); CREATININE, serum 4.24 (0.66-1.25); PHOSPHOROUS 4.2 mg/dL (2.5-4.5); POTASSIUM 4.2 mmol/L (3.4-5.0)
[2019-12-13 08:43] VITALS: BP 172/43; PULSE 62; TEMP 98.8
[2019-12-13] MEDS ORDERED: COZAAR 50MG50 MG/TAB PO (10:23)
[2019-12-13 11:52] VITALS: BP 172/43; PULSE 62; TEMP 98.8
--- NOTE | 2019-12-13 12:36 | NUR ---
Pt transferred to [facility], escorted Pt to entrance, left with family via private transportation.
--- NOTE | 2019-12-13 15:22 | NUR ---
Otolaryngology Surgeon was notified by Viktoria Swing Bed Coordinator at [facility] that they can accept patient today per Dr. Henry. LAUREN contacted patient's daughter, Leslie and confirmed transportation. After discharge orders were completed, LAUREN met with patient and patient's daughter, Leslie to review discharge plan. Leslie plans to leave with patient around 1200 today. LAUREN presented IM form to patient who states he understands rights and requested Leslie sign the form. Leslie provided signature and LAUREN placed original on chart. LAUREN provided copy to the patient. LAUREN provided update to PAMELA Tinsley and to WATSON Blum coordinator on departure/arrival time. LAUREN faxed discharge orders to [facility] coordinator. No additional concerns at this time.
== END 2019-12-13 12:37 | disposition swing bed (61) | DRG 673 ==
LOC: MEDICAL 20:32
PROVIDERS: Surgery; ADMIT Internal Medicine Nephrology
PROC: 5A1D70Z Performance of Urinary Filtration, Intermittent, Less than 6 Hours Per Day (ICD-10-PCS; 2019-12-07)
PROC: 0JH63XZ Insertion of Tunneled Vascular Access Device into Chest Subcutaneous Tissue and Fascia, Percutaneous Approach (ICD-10-PCS; 2019-12-07)
PROC: 02H633Z Insertion of Infusion Device into Right Atrium, Percutaneous Approach (ICD-10-PCS; 2019-12-07)
PROC: 031C0ZF Bypass Left Radial Artery to Lower Arm Vein, Open Approach (ICD-10-PCS; principal; 2019-12-08 08:30)
DX: I12.0 Hypertensive chronic kidney disease with stage 5 chronic kidney disease or end stage renal disease (principal); N18.6 End stage renal disease; N17.9 Acute kidney failure, unspecified; C79.51 Secondary malignant neoplasm of bone; E87.5 Hyperkalemia; C67.9 Malignant neoplasm of bladder, unspecified; E11.22 Type 2 diabetes mellitus with diabetic chronic kidney disease; I25.10 Atherosclerotic heart disease of native coronary artery without angina pectoris; M19.90 Unspecified osteoarthritis, unspecified site; D63.1 Anemia in chronic kidney disease; G47.33 Obstructive sleep apnea (adult) (pediatric); E11.51 Type 2 diabetes mellitus with diabetic peripheral angiopathy without gangrene; E87.70 Fluid overload, unspecified; J43.9 Emphysema, unspecified; G89.29 Other chronic pain; Z85.46 Personal history of malignant neoplasm of prostate; Z95.5 Presence of coronary angioplasty implant and graft; Z98.42 Cataract extraction status, left eye; Z90.6 Acquired absence of other parts of urinary tract; Z90.79 Acquired absence of other genital organ(s); Z79.4 Long term (current) use of insulin; Z79.02 Long term (current) use of antithrombotics/antiplatelets; Z79.82 Long term (current) use of aspirin; Z87.891 Personal history of nicotine dependence
CPT/HCPCS: J0690; J1644; J1815; J2250; J2405; J2704; J3010; J7030; P9016

== ENCOUNTER 2020-06-28 10:58 | Outpatient (CLI) | payer MEDICARE, OTHER ==
[2020-06-28] VITALS (12 sets, daily range): BP systolic 109–173; BP diastolic 36–116; PULSE 50–60; TEMP 97.2
[~2020-06-28] VITALS: Ht 175.3 cm; Wt 73.9 kg
[~2020-06-28 10:58] MED LIST changes: +COZAAR 50MG50 MG/TAB PO
[2020-06-28] MEDS ORDERED: ASPIRIN E.C. 8181 MG PO (12:11)
[2020-06-28] MEDS ORDERED: HYTRIN 1MG C1 MG/CAP PO (12:11)
[2020-06-28] MEDS ORDERED: COZAAR 50MG50 MG/TAB PO (12:12)
[2020-06-28] MEDS ORDERED: THEO-24400 MG PO (12:12)
[2020-06-28] MEDS ORDERED: GLUCOTROL 5M5 MG/TAB PO (12:13)
[2020-06-28] MEDS ORDERED: PLAVIX 75MG TAB75 MG PO (12:13)
[2020-06-28] MEDS ORDERED: IMDUR 60MG60 MG/TAB PO (12:14)
[2020-06-28] MEDS ORDERED: LIPITOR20 MG PO (12:14)
[2020-06-28] MEDS ORDERED: BROVANA15 MCG/2 M IH (12:15)
[2020-06-28] MEDS ORDERED: HUMALOG PEN100 U/ML SQ (12:15)
[2020-06-28] MEDS ORDERED: DEMADEX 20MG20 M1 PO (12:16)
== END 2020-06-28 16:15 | disposition home or self-care (01) ==
LOC: COL.CAR 10:58
DX: T82.598A Other mechanical complication of other cardiac and vascular devices and implants, initial encounter (principal); N18.6 End stage renal disease; Z90.79 Acquired absence of other genital organ(s); Z87.891 Personal history of nicotine dependence
CPT/HCPCS: J1644; J2250; J3010; Q9967

== ENCOUNTER 2020-07-26 07:50 | Day surgery (SDC) | payer MEDICARE, OTHER ==
[~2020-07-26] VITALS: Ht 172.7 cm; Wt 73.4 kg
[~2020-07-26 07:50] MED LIST changes: +THEO-24400 MG PO
[2020-07-26] MEDS ORDERED: AURYXIA1 GM PO (08:34)
[2020-07-26 08:35] VITALS: BP 135/32; PULSE 54; TEMP 98.3
[2020-07-26] MEDS ORDERED: RENAGEL800 MG PO (08:35)
[2020-07-26 10:50] VITALS: BP 149/32; PULSE 58; TEMP 97.6
--- NOTE | 2020-07-26 10:50 | NUR ---
Patient arrives to [facility] [place] [address] via cart, accompanied by ACID PAINTER Duane and AUTO RENTAL CLERK Rashid Lim. He is alert, talking with staff, oriented. PIV to TKO. Monitoring applied - VSS on 3L nasal cannula, his home O2 dose. He denies pain, numbness, nausea, or need. He is offered and receives juice and applesauce to eat/drink. His daughter, Radha is at the bedside.
--- NOTE | 2020-07-26 10:50 | NUR ---
Patient's operative site is clean, dry, intact. Incision closed with surgical glue. There is no thrill/bruit noted. Extremity is WNL neurovascular assessment.
[2020-07-26 11:05] VITALS: BP 157/32; PULSE 56
--- NOTE | 2020-07-26 11:05 | NUR ---
Patient is sitting on the side of the bed, eating/drinking. Tolerating well. He is conversing with his daughter. They deny needs at this time.
[2020-07-26 11:20] VITALS: BP 143/42; PULSE 58
--- NOTE | 2020-07-26 11:20 | NUR ---
VSS on room air. Left extremity remains WNL neurovascular assessment, surgical incision clean/dry/intact.
--- NOTE | 2020-07-26 11:45 | NUR ---
Dr. Dowell is called to confirm that patient may restart his Plavix tomorrow. Per Dr. Dowell, that is fine. Patient and his daughter are informed.
--- NOTE | 2020-07-26 11:50 | NUR ---
Patient has met discharge criteria. Discharge instructions are discussed. He denies any questions and verbalizes understanding. PIV is removed with catheter intact and hemostasis achieved. Patient changes to his clothing with his daughter's help. He wears his 3L oxygen nasal cannula home, connected to his own portable O2 tank. He is escorted to the exit via wheelchair by staff. He is discharged to home with ride in private vehicle at 1150.
== END 2020-07-26 11:50 | disposition home or self-care (01) ==
LOC: SDCO
DX: T82.898A Other specified complication of vascular prosthetic devices, implants and grafts, initial encounter (principal); E11.22 Type 2 diabetes mellitus with diabetic chronic kidney disease; I12.0 Hypertensive chronic kidney disease with stage 5 chronic kidney disease or end stage renal disease; N18.6 End stage renal disease; E78.00 Pure hypercholesterolemia, unspecified; G47.33 Obstructive sleep apnea (adult) (pediatric); J44.9 Chronic obstructive pulmonary disease, unspecified; M19.90 Unspecified osteoarthritis, unspecified site; Z20.828 Contact with and (suspected) exposure to other viral communicable diseases; Z79.4 Long term (current) use of insulin; Z87.891 Personal history of nicotine dependence; Z79.02 Long term (current) use of antithrombotics/antiplatelets; Z79.82 Long term (current) use of aspirin; Z79.899 Other long term (current) drug therapy; Z95.5 Presence of coronary angioplasty implant and graft; Z99.2 Dependence on renal dialysis; Z86.73 Personal history of transient ischemic attack (TIA), and cerebral infarction without residual deficits; Z85.46 Personal history of malignant neoplasm of prostate; Z85.51 Personal history of malignant neoplasm of bladder; Z85.830 Personal history of malignant neoplasm of bone
CPT/HCPCS: J1644; J2405; J2704; J3010; J7030